=== PATIENT | male | born 1940 | race Caucasian/White ===

== ENCOUNTER 2018-01-14 08:26 | Emergency (ER) | payer OTHER ==
[2018-01-14] MEDS ORDERED: LEVALBUTEROL 1.25 MG/3 ML NEB ONE (09:19)
--- NOTE | 2018-01-14 09:36 | RAD REPORT ---
EXAM DESCRIPTION: Sulaiman Smith (2 Views)01/14/2018 9:26 am CLINICAL HISTORY: Cough COMPARISON: 2014 FINDINGS: The lungs appear clear of acute infiltrate. The heart is normal size. Right pleural thick ening IMPRESSION: No acute abnormalities displayed
--- NOTE | 2018-01-14 09:54 | ER ---
Nurse's Notes [facility] Name: John Dave Age: 77 yrs Sex: Male : 1940 Arrival Date: 01/14/2018 Time: 08:29 Bed 18 Private MD: TRESSA BUSTILLOS Diagnosis: Acute bronchitis;Asthma Presentation: 01/14 08:40 Presenting complaint: Patient states: "I think I've got bronchitis or pneumonia" Pt c/o ss cough, nasal congestion and discharge that began 5-6 days ago. Denies fever. Transition of care: patient was not received from another setting of care. Resp Distress? No respiratory distress is noted at this time. Onset of symptoms was January 06, 2018. Risk Assessment: Do you want to hurt yourself or someone else? Patient reports no desire to harm self or others. Initial Sepsis Screen: Does the patient meet any 2 criteria? RR > 20 per min. Does the patient have a suspected source of infection? Yes: Productive cough/pneumonia. Care prior to arrival: None. 08:40 Method Of Arrival: Ambulatory 08:40 Acuity: LUPILLO 3 ss Historical: - Allergies: 08:45 Erythromycin; ss 08:45 Levofloxacin; ss - Immunization history:: Adult Immunizations up to date. - Social history:: Smoking status: Patient/guardian denies using tobacco. - Ebola Screening: : Patient denies exposure to infectious person Patient denies travel to an Ebola-affected area in the 21 days before illness onset. Screenin:11 Abuse screen: Denies threats or abuse. Nutritional screening: No deficits noted. em Tuberculosis screening: No symptoms or risk factors identified. Fall Risk None identified. Assessment: 09:11 General: Appears in no apparent distress. comfortable, Behavior is calm, cooperative. em Pain: Denies pain. Neuro: Level of Consciousness is awake, alert, obeys commands. Cardiovascular: Denies chest pain, Heart tones S1 S2 present Capillary refill < 3 seconds Patient's skin is warm and dry. Respiratory: Reports cough that is Airway is patent Respiratory effort is even, unlabored, Respiratory pattern is regular, symmetrical, Breath sounds are diminished in left posterior lower lobe and right posterior lower lobe. GI: Abdomen is round non-distended. : No signs and/or symptoms were reported regarding the genitourinary system. EENT: No signs and/or symptoms were reported regarding the EENT system. Derm: Skin is intact, Skin is pink, warm \\T\\ dry. Musculoskeletal: Range of motion: intact in all extremities. 09:15 General: The previous assessment is accurate, call light remains within reach. . ss 09:44 Reassessment: Patient appears in no apparent distress at this time. Patient and/or em family updated on plan of care and expected duration. Pain level reassessed. Patient is alert, oriented x 3, equal unlabored respirations, skin warm/dry/pink. reports feeling better after breathing treatment. Vital Signs: 08:45 BP 135 / 65; Pulse 75; Resp 24; Temp 97.4(TE); Pulse Ox 96% on R/A; Weight 107.95 kg; ss Height 6 ft. 0 in. (182.88 cm); Pain 0/10; 09:44 BP 120 / 60; Pulse 75; Resp 18; Pulse Ox 95% on R/A; Pain 0/10; em 08:45 Body Mass Index 32.28 (107.95 kg, 182.88 cm) ED Course: 08:29 Patient arrived in ED. mr 08:29 VA, VA is Private Physician. mr 08:30 Yadiel Rahman PA is PHCP. jr8 08:30 Dwayne Hewitt MD is Attending Physician. jr8 08:44 Triage completed. ss 08:45 Mat Montgomery LVN is Primary Nurse. em 08:45 Arm band placed on right wrist. ss 09:11 Patient has correct armband on for positive identification. Placed in gown. Bed in low em position. Call light in reach. Adult w/ patient. 09:11 No provider procedures requiring assistance completed. em 09:26 XRAY Chest Pa And Lat (2 Views) In Process Unspecified. EDMS 10:03 Patient did not have IV access during this emergency room visit. em Administered Medications: 09:28 Drug: Xopenex 1.25 mg Route: Inhalation; em 09:41 Follow up: Response: No adverse reaction; Marked relief of symptoms em Outcome: 09:53 Discharge ordered by . jr8 10:03 Discharged to home ambulatory, with family. em 10:03 Condition: good 10:03 Discharge instructions given to patient, family, Instructed on discharge instructions, follow up and referral plans. medication usage, Demonstrated understanding of instructions, follow-up care, medications, Prescriptions given X 2. 10:04 Patient left the ED. em Signatures: Dispatcher [employer] Charis Plascencia mr Ulises, Mat, [employer]IST[employer]LE[employer]ISTS [employer] Vicky Yee RN RN ss Yadiel Rahman PA PA jr8
--- NOTE | 2018-01-14 09:54 | EDPHYS ---
Physician Documentation [facility] Name: John Dave Age: 77 yrs Sex: Male : 1940 Arrival Date: 01/14/2018 Time: 08:29 Bed 18 Private MD: TRESSA FL ED Physician Dwayne Hewitt HPI: 01/14 14:46 This 77 yrs old Male presents to ER via Ambulatory with complaints of Cough, jr8 Congestion. 14:46 The patient or guardian reports cough, that is intermittent, described as moderate, jr8 with productive sputum, that is green. Onset: The symptoms/episode began/occurred gradually, 2 day(s) ago. Severity of symptoms: At their worst the symptoms were mild, in the emergency department the symptoms are unchanged. Modifying factors: The symptoms are alleviated by nothing, the symptoms are aggravated by nothing. Associated signs and symptoms: The patient has no apparent associated signs or symptoms. The patient has not experienced similar symptoms in the past. The patient has not recently seen a physician. Historical: - Allergies: 08:45 Erythromycin; ss 08:45 Levofloxacin; ss - Immunization history:: Adult Immunizations up to date. - Social history:: Smoking status: Patient/guardian denies using tobacco. - Ebola Screening: : Patient denies exposure to infectious person Patient denies travel to an Ebola-affected area in the 21 days before illness onset. ROS: 14:46 Eyes: Negative for injury, pain, redness, and discharge, ENT: Negative for injury, jr8 pain, and discharge, Neck: Negative for injury, pain, and swelling, Cardiovascular: Negative for chest pain, palpitations, and edema, Abdomen/GI: Negative for abdominal pain, nausea, vomiting, diarrhea, and constipation, Back: Negative for injury and pain, MS/Extremity: Negative for injury and deformity, Skin: Negative for injury, rash, and discoloration, Neuro: Negative for headache, weakness, numbness, tingling, and seizure. 14:46 Respiratory: Positive for cough, with green sputum, wheezing, Negative for shortness of breath. Exam: 14:46 Eyes: Pupils equal round and reactive to light, extra-ocular motions intact. Lids and jr8 lashes normal. Conjunctiva and sclera are non-icteric and not injected. Cornea within normal limits. Periorbital areas with no swelling, redness, or edema. ENT: Nares patent. No nasal discharge, no septal abnormalities noted. Tympanic membranes are normal and external auditory canals are clear. Oropharynx with no redness, swelling, or masses, exudates, or evidence of obstruction, uvula midline. Mucous membranes moist. Neck: Trachea midline, no thyromegaly or masses palpated, and no cervical lymphadenopathy. Supple, full range of motion without nuchal rigidity, or vertebral point tenderness. No Meningismus. Cardiovascular: Regular rate and rhythm with a normal S1 and S2. No gallops, murmurs, or rubs. Normal PMI, no JVD. No pulse deficits. Abdomen/GI: Soft, non-tender, with normal bowel sounds. No distension or tympany. No guarding or rebound. No evidence of tenderness throughout. Back: No spinal tenderness. No costovertebral tenderness. Full range of motion. Skin: Warm, dry with normal turgor. Normal color with no rashes, no lesions, and no evidence of cellulitis. MS/ Extremity: Pulses equal, no cyanosis. Neurovascular intact. Full, normal range of motion. Neuro: Awake and alert, GCS 15, oriented to person, place, time, and situation. Cranial nerves II-XII grossly intact. Motor strength 5/5 in all extremities. Sensory grossly intact. Cerebellar exam normal. Normal gait. 14:46 Respiratory: the patient does not display signs of respiratory distress, Respirations: normal, symetrical, no use of accessory muscles, no grunting, no evidence of nasal flaring, no prolonged exhalations, no pursed lip breathing, no retractions, no shallow respirations, no splinting, no tachypnea, Breath sounds: wheezing: expiratory that is mild, is heard in the right posterior upper lobe, right posterior middle lobe and right posterior lower lobe. Vital Signs: 08:45 BP 135 / 65; Pulse 75; Resp 24; Temp 97.4(TE); Pulse Ox 96% on R/A; Weight 107.95 kg; ss Height 6 ft. 0 in. (182.88 cm); Pain 0/10; 09:44 BP 120 / 60; Pulse 75; Resp 18; Pulse Ox 95% on R/A; Pain 0/10; em 08:45 Body Mass Index 32.28 (107.95 kg, 182.88 cm) MDM: 08:30 Patient medically screened. jr8 09:52 Data reviewed: vital signs, nurses notes, radiologic studies, plain films, and as a jr8 result, I will discharge patient. Data interpreted: Pulse oximetry: on room air is 95 %. Interpretation: normal. Counseling: I had a detailed discussion with the patient and/or guardian regarding: the historical points, exam findings, and any diagnostic results supporting the discharge/admit diagnosis, radiology results, the need for outpatient follow up, a family practitioner, to return to the emergency department if symptoms worsen or persist or if there are any questions or concerns that arise at home. Response to treatment: the patient's symptoms have markedly improved after treatment. 01/14 08:51 Order name: XRAY Chest Pa And Lat (2 Views); Complete Time: 09:39 jr8 Administered Medications: 09:28 Drug: Xopenex 1.25 mg Route: Inhalation; em 09:41 Follow up: Response: No adverse reaction; Marked relief of symptoms em Disposition: 12:27 Co-signature as Attending Physician, Dwayne Hewitt MD I agree with the assessment and [facility] plan of care. Disposition: 01/14/18 09:53 Discharged to Home. Impression: Acute bronchitis, Asthma. - Condition is Stable. - Discharge Instructions: Acute Bronchitis, Adult, Asthma, Acute Bronchospasm. - Prescriptions for Doxycycline Monohydrate 100 mg Oral Tablet - take 1 tablet by ORAL route every 12 hours for 10 days; 20 tablet. Albuterol Sulfate 90 mcg/actuation - inhale 1-2 puff by INHALATION route every 4-6 hours; 1 Inhaler. - Medication Reconciliation Form, Thank You Letter, Antibiotic Education, Prescription Opioid Use form. - Follow up: Private Physician; When: 1 week; Reason: Recheck today's complaints, Continuance of care, Re-evaluation by your physician. - Problem is new. - Symptoms have improved. Signatures: Dispatcher [employer] Dwayne Merritt MD MD cha Munoz, Edgar, GREEN COFFEE BLENDER GREEN [employer]EE BLENDER Vicky Yee RN RN ss Roszak, Josh, PA PA jr8 Corrections: (The following items were deleted from the chart) 10:04 09:53 01/14/2018 09:53 Discharged to Home. Impression: Acute bronchitis; Asthma. em Condition is Stable. Forms are Medication Reconciliation Form, Thank You Letter, Antibiotic Education, Prescription Opioid Use. Follow up: Private Physician; When: 1 week; Reason: Recheck today's complaints, Continuance of care, Re-evaluation by your physician. Problem is new. Symptoms have improved. jr8
== END 2018-01-14 10:04 | disposition home or self-care (01) ==
LOC: ER 08:26
DX: J20.9 Acute bronchitis, unspecified (principal); Z88.3 Allergy status to other anti-infective agents; Z88.8 Allergy status to other drugs, medicaments and biological substances
CPT/HCPCS: 71046; 99284

== ENCOUNTER 2018-03-28 15:28 | Observation (INO) | payer OTHER ==
--- NOTE | 2018-03-28 16:57 | ER ---
Nurse's Notes [facility] Name: John Dave Age: 77 yrs Sex: Male : 1940 Arrival Date: 03/28/2018 Time: 15:32 Bed 23 Private MD: TRESSA BUSTILLOS Diagnosis: Fall due to bumping against object;Multiple fractures of ribs, right side-posterior lateral;Contusion of right back wall of thorax;Contusion of thorax;Pleural effusion in conditions classified elsewhere;Type 1 diabetes mellitus Presentation: 03/28 15:57 Presenting complaint: Patient states: chest congestion, fell in shower and has sv right rib pain, productive cough. Care prior to arrival: None. Mechanism of Injury: Fall from standing position. 15:57 Acuity: LUPILLO 3 sv 15:57 Method Of Arrival: Wheelchair sv 15:58 Transition of care: patient was not received from another setting of care. Onset of sv symptoms was March 24, 2018. 18:17 Risk Assessment: Do you want to hurt yourself or someone else? Patient reports no ls4 desire to harm self or others. Initial Sepsis Screen: Does the patient meet any 2 criteria? No. Patient's initial sepsis screen is negative. Does the patient have a suspected source of infection? No. Patient's initial sepsis screen is negative. Triage Assessment: 18:17 General: Appears in no apparent distress. Behavior is cooperative. ls4 Trauma Activation: Not Applicable Physician: ED Physician; Name: ; Notified At: ; Arrived At: Physician: General Surgeon; Name: ; Notified At: ; Arrived At: Physician: Radiology; Name: ; Notified At: ; Arrived At: Physician: Respiratory; Name: ; Notified At: ; Arrived At: Physician: Lab; Name: ; Notified At: ; Arrived At: Historical: - Allergies: 16:00 Erythromycin; sv 16:00 Levofloxacin; sv - PMHx: 16:00 Diabetes - IDDM; familial tremors; Hypothyroidism; plural effusion; Pneumonia; Prostate sv Cancer; thoracentisis; - PSHx: 16:01 Cholecystectomy; shoulder; prostate removal; sv - Immunization history:: Adult Immunizations unknown, Last tetanus immunization:. - Social history:: Smoking status: Patient/guardian denies using tobacco, never smoked. - Ebola Screening: : No symptoms or risks identified at this time. Screenin:48 Abuse screen: Denies threats or abuse. Denies injuries from another. Nutritional ls4 screening: No deficits noted. Tuberculosis screening: No symptoms or risk factors identified. Fall Risk None identified. Assessment: 17:00 General: Appears uncomfortable, Behavior is calm, cooperative. ls4 17:00 Respiratory: Reports pain with movement since Pain is 5 out of 10 on a pain ls4 scale. Airway Respiratory effort is even, unlabored, Respiratory pattern is pt reports pain in right posterior chest area on inspiration. 17:10 Pain: Complains of pain in right posterior lower lobe and right posterior middle lobe ls4 and left mid back and left low back Pain currently is 7 out of 10 on a pain scale. 17:10 Neuro: No deficits noted. Cardiovascular: No deficits noted. Respiratory: Reports cough ls4 that is productive, persistent since one year. GI: No deficits noted. : No deficits noted. Derm: No deficits noted. Musculoskeletal: Reports pain in right posterior lower lobe and right posterior middle lobe and left mid back and left low back. 18:00 Reassessment: Patient and/or family updated on plan of care and expected duration. Pain ls4 level reassessed. Patient is alert, oriented x 3, equal unlabored respirations, skin warm/dry/pink. 19:00 Reassessment: Patient and/or family updated on plan of care and expected duration. Pain ls4 level reassessed. Patient is alert, oriented x 3, equal unlabored respirations, skin warm/dry/pink. 20:00 Reassessment: Patient and/or family updated on plan of care and expected duration. Pain ls4 level reassessed. Patient is alert, oriented x 3, equal unlabored respirations, skin warm/dry/pink. Vital Signs: 16:02 BP 138 / 71; Pulse 73; Resp 20; Temp 99.2(O); Pulse Ox 96% ; Weight 108.86 kg; Height 6 sv ft. 0 in. (182.88 cm); Pain 8/10; 17:00 BP 132 / 70; Pulse 71; Resp 16; Pulse Ox 99% on R/A; Pain 4/10; ls4 18:00 BP 134 / 70; Pulse 71; Resp 16; Temp 98.4(O); Pulse Ox 98% on R/A; Pain 3/10; ls4 19:00 BP 128 / 70; Pulse 70; Resp 18; Temp 98.2(O); Pulse Ox 98% on R/A; Pain 3/10; ls4 20:00 BP 126 / 72; Pulse 69; Resp 16; Pulse Ox 99% on R/A; Pain 3/10; ls4 20:24 BP 128 / 72; Pulse 70; Resp 16; Temp 98.6(O); Pulse Ox 98% on R/A; Pain 5/10; ls4 16:02 Body Mass Index 32.55 (108.86 kg, 182.88 cm) sv ED Course: 15:32 Patient arrived in ED. sb2 15:32 VA, VA is Private Physician. sb2 15:58 Triage completed. sv 16:02 Arm band placed on. sv 16:25 Dwayne Hewitt MD is Attending Physician. [facility] 16:27 Shanice Amador, JOSE ANTONIO is Primary Nurse. ls4 16:34 Patient moved to radiology via wheelchair. jf 16:34 X-ray completed. Patient tolerated procedure well. jf 16:38 Radiology exam delayed due to lab results not completed at this time. (BUN/Creatinine). nj 16:39 Chest Pa And Lat (2 Views) XRAY In Process Unspecified. EDMS 16:48 Patient moved back from radiology. jf 16:48 Patient has correct armband on for positive identification. Placed in gown. Bed in low ls4 position. Side rails up X 1. hall monitor on. Pulse ox on. NIBP on. 16:48 No provider procedures requiring assistance completed. ls4 16:50 Leatha Hernandez MD is Hospitalizing Provider. [facility] 17:02 EKG done, by lighting engineering technician. reviewed by Dwayne Hewitt MD. 3 18:12 CT Chest, Abdomen, Pelvis - W/Contrast In Process Unspecified. EDMS 18:14 CT completed. Patient tolerated procedure well. Patient moved back from CT. nj 18:14 INCENTIVE SPIROMETRY Sent. ls4 Administered Medications: 17:08 Drug: NS 0.9% 500 ml Route: IV; Rate: bolus; Site: left antecubital; ls4 17:35 Follow up: IV Status: Completed infusion; IV Intake: 200ml ls4 17:10 Drug: fentaNYL (PF) 50 mcg Route: IVP; Site: left antecubital; ls4 17:40 Follow up: Response: No adverse reaction; Marked relief of symptoms ls4 17:10 Drug: Zofran 4 mg Route: IVP; Site: left antecubital; ls4 17:40 Follow up: Response: No adverse reaction; Marked relief of symptoms ls4 17:15 Drug: NS 0.9% 1000 ml Route: IV; Rate: 125 ml/hr; Site: left antecubital; ls4 03/29 21:35 Follow up: IV Status: Infusion continued upon admission; IV Intake: 275ml ls4 03/28 18:12 Drug: Zosyn 3.375 grams Route: IVPB; Infused Over: 60 mins; Site: left antecubital; ls4 20:38 Follow up: Response: No adverse reaction; IV Status: Completed infusion; IV Intake: ls4 100ml 18:12 Drug: Xopenex 2.5 mg Route: Inhalation; ls4 20:38 Follow up: Response: No adverse reaction; Marked relief of symptoms ls4 18:12 Drug: AtroVENT Aerosol 0.5 mg Route: Inhalation; ls4 18:48 Follow up: Response: No adverse reaction ls4 20:24 Follow up: BP 128 / 72; Pulse 70 bpm; Resp 16 bpm; Temp 98.6 Oral; Pulse Ox 98% RA; ls4 Pain 5/10 Adult Intake: 17:35 IV: 200ml; Total: 200ml. ls4 20:38 IV: 100ml; Total: 300ml. ls4 03/29 21:35 IV: 275ml; Total: 575ml. ls4 Outcome: 03/28 16:57 Decision to Hospitalize by Provider. [facility] 21:42 Admitted to Tele accompanied by tech, room 405, on monitor, with chart, Report called ls4 to Dank 21:42 Condition: stable 21:44 Patient left the ED. ls4 Signatures: Dispatcher [employer] EDMS Fannie Samuels RN RN Dwayne Yepez MD MD cha Jordan, Nathan nj Faul, Justin jf Billeau, Sheri 2 Carey Bell 3 Shanice Amador RN RN ls4 Corrections: (The following items were deleted from the chart) 16:03 16:02 Pulse 73bpm; Resp 20bpm; Pulse Ox 96%; Temp 99.2F; 108.86 kg; Height 6 ft. 0 in.; sv BMI: 32.5; Pain 8/10; sv 18:14 18:13 fentaNYL (PF) 50 mcg IVP in left antecubital ls4 ls4 20:38 19:12 Response: No adverse reaction; IV Status: Completed infusion; IV Intake: 100ml ls4ls4
--- NOTE | 2018-03-28 16:57 | EDPHYS ---
Physician Documentation [facility] Name: John Dave Age: 77 yrs Sex: Male : 1940 Arrival Date: 03/28/2018 Time: 15:32 Bed 23 Private MD: [place], [place] ED Physician Dwayne Hewitt HPI: 03/28 16:32 This 77 yrs old Male presents to ER via Wheelchair with complaints of Fall kaiser Injury - BACK. 16:32 Details of fall: The patient fell from an upright position, while standing. Onset: The kaiser symptoms/episode began/occurred 5 day(s) ago. Associated injuries: The patient sustained upper back injury, contusion, decreased range of motion, pain, pain with movement, tenderness. Severity of symptoms: At their worst the symptoms were moderate. The patient has not experienced similar symptoms in the past. Historical: - Allergies: 16:00 Erythromycin; sv 16:00 Levofloxacin; sv - PMHx: 16:00 Diabetes - IDDM; familial tremors; Hypothyroidism; plural effusion; Pneumonia; Prostate sv Cancer; thoracentisis; - PSHx: 16:01 Cholecystectomy; shoulder; prostate removal; sv - Immunization history:: Adult Immunizations unknown, Last tetanus immunization:. - Social history:: Smoking status: Patient/guardian denies using tobacco, never smoked. - Ebola Screening: : No symptoms or risks identified at this time. ROS: 16:32 Constitutional: Negative for fever, chills, and weight loss, Eyes: Negative for injury, kaiser pain, redness, and discharge, ENT: Negative for injury, pain, and discharge, Neck: Negative for injury, pain, and swelling, Cardiovascular: Negative for chest pain, palpitations, and edema, Respiratory: Negative for shortness of breath, cough, wheezing, and pleuritic chest pain, Abdomen/GI: Negative for abdominal pain, nausea, vomiting, diarrhea, and constipation, : Negative for injury, bleeding, discharge, and swelling, MS/Extremity: Negative for injury and deformity, Skin: Negative for injury, rash, and discoloration, Neuro: Negative for headache, weakness, numbness, tingling, and seizure, Psych: Negative for depression, anxiety, suicide ideation, homicidal ideation, and hallucinations, Allergy/Immunology: Negative for hives, rash, and allergies, Endocrine: Negative for neck swelling, polydipsia, polyuria, polyphagia, and marked weight changes, Hematologic/Lymphatic: Negative for swollen nodes, abnormal bleeding, and unusual bruising. 16:32 Back: Positive for pain at rest, pain with movement, flank pain, on the left, radiated pain, of the left low back and left mid back. Exam: 16:36 Constitutional: This is a well developed, well nourished patient who is awake, alert, kaiser and in no acute distress. Head/Face: Normocephalic, atraumatic. Eyes: Pupils equal round and reactive to light, extra-ocular motions intact. Lids and lashes normal. Conjunctiva and sclera are non-icteric and not injected. Cornea within normal limits. Periorbital areas with no swelling, redness, or edema. ENT: Nares patent. No nasal discharge, no septal abnormalities noted. Tympanic membranes are normal and external auditory canals are clear. Oropharynx with no redness, swelling, or masses, exudates, or evidence of obstruction, uvula midline. Mucous membranes moist. Neck: Trachea midline, no thyromegaly or masses palpated, and no cervical lymphadenopathy. Supple, full range of motion without nuchal rigidity, or vertebral point tenderness. No Meningismus. Chest/axilla: Normal chest wall appearance and motion. Nontender with no deformity. No lesions are appreciated. Cardiovascular: Regular rate and rhythm with a normal S1 and S2. No gallops, murmurs, or rubs. Normal PMI, no JVD. No pulse deficits. Abdomen/GI: Soft, non-tender, with normal bowel sounds. No distension or tympany. No guarding or rebound. No evidence of tenderness throughout. Male : Normal genitalia with no discharge or lesions. Skin: Warm, dry with normal turgor. Normal color with no rashes, no lesions, and no evidence of cellulitis. MS/ Extremity: Pulses equal, no cyanosis. Neurovascular intact. Full, normal range of motion. Neuro: Awake and alert, GCS 15, oriented to person, place, time, and situation. Cranial nerves II-XII grossly intact. Motor strength 5/5 in all extremities. Sensory grossly intact. Cerebellar exam normal. Normal gait. Psych: Awake, alert, with orientation to person, place and time. Behavior, mood, and affect are within normal limits. 16:36 Respiratory: the patient does not display signs of respiratory distress, Respirations: normal, Breath sounds: decreased breath sounds, rhonchi, that are mild, that are moderate, are located in both bases, are heard in the right posterior middle lobe and right posterior lower lobe, Respiratory rate: 20 Vital Signs: 16:02 BP 138 / 71; Pulse 73; Resp 20; Temp 99.2(O); Pulse Ox 96% ; Weight 108.86 kg; Height 6 sv ft. 0 in. (182.88 cm); Pain 8/10; 17:00 BP 132 / 70; Pulse 71; Resp 16; Pulse Ox 99% on R/A; Pain 4/10; ls4 18:00 BP 134 / 70; Pulse 71; Resp 16; Temp 98.4(O); Pulse Ox 98% on R/A; Pain 3/10; ls4 19:00 BP 128 / 70; Pulse 70; Resp 18; Temp 98.2(O); Pulse Ox 98% on R/A; Pain 3/10; ls4 20:00 BP 126 / 72; Pulse 69; Resp 16; Pulse Ox 99% on R/A; Pain 3/10; ls4 20:24 BP 128 / 72; Pulse 70; Resp 16; Temp 98.6(O); Pulse Ox 98% on R/A; Pain 5/10; ls4 16:02 Body Mass Index 32.55 (108.86 kg, 182.88 cm) sv MDM: 16:25 Patient medically screened. [facility] 16:36 Data reviewed: vital signs, nurses notes, lab test result(s), EKG, radiologic studies, [facility] CT scan, plain films. 03/28 16:31 Order name: Basic Metabolic Panel; Complete Time: 17:46 [facility] 03/28 16:31 Order name: CBC with Diff; Complete Time: 17:46 [facility] 03/28 16:31 Order name: Creatinine for Radiology; Complete Time: 17:46 [facility] 03/28 16:31 Order name: Type And Screen; Complete Time: 18:19 [facility] 03/28 16:31 Order name: Lipase; Complete Time: 17:46 [facility] 03/28 16:31 Order name: LFT's; Complete Time: 17:46 [facility] 03/28 16:31 Order name: Blood Culture Adult (2) [facility] 03/28 16:31 Order name: Urine Culture [facility] 03/28 16:37 Order name: PT-INR; Complete Time: 17:46 [facility] 03/28 16:37 Order name: Procalcitonin; Complete Time: 18:19 [facility] 03/28 17:26 Order name: Troponin (Emerg Dept Use Only); Complete Time: 17:46 [facility] 03/28 16:03 Order name: Chest Pa And Lat (2 Views) XRAY 03/28 16:31 Order name: Labs collected and sent; Complete Time: 18:15 [facility] 03/28 16:31 Order name: CT Chest, Abdomen, Pelvis - W/Contrast [facility] 03/28 16:31 Order name: INCENTIVE SPIROMETRY [facility] 03/28 16:37 Order name: EKG; Complete Time: 16:38 [facility] 03/28 17:29 Order name: NT PRO-BNP; Complete Time: 17:46 [facility] 03/28 17:29 Order name: Magnesium; Complete Time: 17:46 [facility] 03/28 18:03 Order name: Urine Dipstick--Ancillary (enter results) 03/28 20:57 Order name: ABO/RH no charge [facility] 03/28 16:31 Order name: Urine Dipstick-Ancillary (obtain specimen); Complete Time: 18:15 [facility] 03/28 16:37 Order name: Cardiac monitoring; Complete Time: 17:13 [facility] 03/28 16:37 Order name: EKG - Nurse/Tech; Complete Time: 17:13 [facility] 03/28 16:37 Order name: O2 Per Protocol; Complete Time: 17:13 [facility] 03/28 16:37 Order name: O2 Sat Monitoring; Complete Time: 18:15 [facility] Administered Medications: 17:08 Drug: NS 0.9% 500 ml Route: IV; Rate: bolus; Site: left antecubital; ls4 17:35 Follow up: IV Status: Completed infusion; IV Intake: 200ml ls4 17:10 Drug: fentaNYL (PF) 50 mcg Route: IVP; Site: left antecubital; ls4 17:40 Follow up: Response: No adverse reaction; Marked relief of symptoms ls4 17:10 Drug: Zofran 4 mg Route: IVP; Site: left antecubital; ls4 17:40 Follow up: Response: No adverse reaction; Marked relief of symptoms ls4 17:15 Drug: NS 0.9% 1000 ml Route: IV; Rate: 125 ml/hr; Site: left antecubital; ls4 03/29 21:35 Follow up: IV Status: Infusion continued upon admission; IV Intake: 275ml ls4 03/28 18:12 Drug: Zosyn 3.375 grams Route: IVPB; Infused Over: 60 mins; Site: left antecubital; ls4 20:38 Follow up: Response: No adverse reaction; IV Status: Completed infusion; IV Intake: ls4 100ml 18:12 Drug: Xopenex 2.5 mg Route: Inhalation; ls4 20:38 Follow up: Response: No adverse reaction; Marked relief of symptoms ls4 18:12 Drug: AtroVENT Aerosol 0.5 mg Route: Inhalation; ls4 18:48 Follow up: Response: No adverse reaction ls4 20:24 Follow up: BP 128 / 72; Pulse 70 bpm; Resp 16 bpm; Temp 98.6 Oral; Pulse Ox 98% RA; ls4 Pain 5/10 Adult Disposition: 03/28/18 16:57 Hospitalization ordered by Leatha Hernandez for Inpatient Admission. Preliminary diagnosis are Fall due to bumping against object, Multiple fractures of ribs, right side - posterior lateral, Contusion of right back wall of thorax, Contusion of thorax, Pleural effusion in conditions classified elsewhere, Type 1 diabetes mellitus. - Bed requested for Telemetry/MedSurg (Inpatient). - Status is Inpatient Admission. ls4 - Condition is Fair. - Problem is new. - Symptoms are unchanged. UTI on Admission? No Signatures: Dispatcher [employer] EDMS Fannie Samuels RN RN sv Webb, Martha, RN RN mw Anderson, Corey, MD MD cha Stewart, Lisa, RN RN ls4 Corrections: (The following items were deleted from the chart) 17:26 16:38 MAGNESIUM+C.LAB.BRZ ordered. EDMS EDMS 17:26 16:38 PROBNP+C.LAB.BRZ ordered. EDMS EDMS 17: 16:38 TROPONIN (EMERG DEPT USE ONLY)+C.LAB.BRZ ordered. EDMS EDMS 19:51 16:57 Hospitalization Ordered by Leatha Hernandez MD for Inpatient Admission. Preliminary mw diagnosis is Fall due to bumping against object; Multiple fractures of ribs, right side - posterior lateral; Contusion of right back wall of thorax; Contusion of thorax; Pleural effusion in conditions classified elsewhere; Type 1 diabetes mellitus. Bed requested for Telemetry/MedSurg (Inpatient). Status is Inpatient Admission. Condition is Fair. Problem is new. Symptoms are unchanged. UTI on Admission? No. kaiser 21:44 19:51 03/28/2018 16:57 Hospitalization Ordered by Leatha Hernandez MD for Inpatient ls4 Admission. Preliminary diagnosis is Fall due to bumping against object; Multiple fractures of ribs, right side - posterior lateral; Contusion of right back wall of thorax; Contusion of thorax; Pleural effusion in conditions classified elsewhere; Type 1 diabetes mellitus. Bed requested for Telemetry/MedSurg (Inpatient). Status is Inpatient Admission. Condition is Fair. Problem is new. Symptoms are unchanged. UTI on Admission? No.
--- NOTE | 2018-03-28 17:08 | EKG ---
Test Date: 2018-03-28 Test Time: 16:56:56 [employer]: COURTNEY MEASUREMENT RESULTS: Intervals: Rate: 68 AK: QRSD: 86 QT: 422 QTc: 448 [place]: P: AK: QRS: 3 T: 54 INTERPRETIVE STATEMENTS: Accelerated Junctional rhythm Possible Inferior infarct, age undetermined Abnormal ECG No previous ECG available for comparison Electronically Signed On 03-28-18 17:08:01 TEST INSPECTION ENGINEER by Alejandro Reddy
[2018-03-28 17:32] LABS: Protime INR 1.07
[2018-03-28] MEDS ORDERED: NA CHLORIDE 0.9% 500 ML ONE (17:34)
[2018-03-28] MEDS ORDERED: NA CHLORIDE 0.9% 1,000 ML ONE (17:34)
[2018-03-28] MEDS ORDERED: FENTANYL CITR 100 MCG/2 ML ONE (17:34)
[2018-03-28 17:35] LABS: Absolute Lymphocytes (CBC) 2.2 K/uL (0.7-4.9); Absolute Monocytes 0.9 K/uL (0.1-1.3); Absolute Neutrophil 7.1 K/uL (1.8-8.0); Basophils % 0.6 % (0-1.3); Eosinophils % 2.8 % (0-4.4); Hematocrit 39.3 % (39.6-49.0); Lymphocytes % 20.5 % (15.3-44.8); MPV 7.9 fL (7.6-11.3); Monocytes % 8.4 % (3.3-12.3); RBC Red Blood Cell Count 4.39 M/uL (4.33-5.43)
[2018-03-28] MEDS ORDERED: PIPER/TAZO/NS 3.375gm 3.375 GM/100 ML BAG ONE (17:37)
[2018-03-28] MEDS ORDERED: IPRATROPIUM BROM 0.5MG/2.5ML ONE (17:37)
[2018-03-28] MEDS ORDERED: LEVALBUTEROL 1.25 MG/3 ML NEB ONE (17:37)
[2018-03-28] MEDS ORDERED: ONDANSETRON 4 MG/2 ML VIAL ONE (17:37)
[2018-03-28 17:45] LABS: ALT/SGPT 53 U/L (12-78); AST/SGOT 33 U/L (15-37); Albumin 3.8 g/dL (3.4-5.0); Alkaline Phosphatase 89 U/L (45-117); BUN Blood Urea Nitrogen 14 mg/dL (7-18); Bicarbonate 29 mmol/L (21-32); Bilirubin Direct 0.1 mg/dL (0-0.2); Bilirubin Total 0.3 mg/dL (0.2-1.0); Glucose Level 116 mg/dL (74-106); Lipase 78 U/L (73-393); Magnesium 1.9 mg/dL (1.8-2.4); NT PRO-BNP 144 pg/mL (<450); Potassium 4.4 mmol/L (3.5-5.1); Protein, Total 7.9 g/dL (6.4-8.2); Sodium Level 136 mmol/L (136-145); Troponin (Emerg Dept Use Only) < 0.02 ng/mL (0.0-0.045)
--- NOTE | 2018-03-28 18:29 | RAD REPORT ---
EXAM DESCRIPTION: CT - Chest Abdomen Pelvis W Cont - 03/28/2018 6:12 pm CLINICAL HISTORY: Chest and abdomen pain. Cough;Chest pain;Blunt chest trauma COMPARISON: No comparisons TECHNIQUE: Approximately 100 mL nonionic IV contrast was administered to the patient. All CT scans are performed using dose optimization technique as appropriate and may include automated exposure control or mA/KV adjustment according to patient size. FINDINGS: Mildly displaced fracture is seen involving the right posterolateral seventh and eighth ri bs. A small right pleural effusion is present. The lungs are emphysematous. Several enlarged lymph nodes are present in the mediastinum, the largest in the right paratracheal lo cation measuring 2.6 cm. Subcarinal lymphadenopathy is also noted measuring up to 2.3 cm in short axi s. The liver, spleen, pancreas, adrenal glands and kidneys are within normal limits. No bowel obstruction, free air, free fluid or abscess. A rounded soft tissue density mass in the righ t lower quadrant noted measuring 3.6 cm, possibly an enlarged lymph node in the pelvis. Postsurgical changes of prostatectomy noted. Sigmoid diverticulosis is present without diverticulitis. Aortic ath erosclerosis seen. IMPRESSION: Minimally displaced right posterolateral seventh and eighth rib fractures with a small r ight pleural effusion. Pathologically enlarged mediastinal adenopathy is noted, suspicious for lymphoma. Nuclear medicine PE T-CT scan may be of value for further characterization.
--- NOTE | 2018-03-28 18:43 | RAD REPORT ---
EXAM DESCRIPTION: Sulaiman Hameed And Kulwinder (2 Views)03/28/2018 4:40 pm CLINICAL HISTORY: Cough FINDINGS: Mildly displaced fracture involves two mid right posterolateral ribs The lungs appear clear of acute infiltrate. Small right pleural effusion is present. Mediastinum is mildly prominent likely indicating lymphadeno ihsan
[2018-03-28 20:18] LABS: Urine Blood NEGATIVE (NEG); Urine Glucose NEGATIVE (NEG); Urine Protein TRACE (NEG); Urine pH 5.5 (5.0-7.0)
[2018-03-28] MEDS ORDERED: TRAMADOL HCL 50 MG TAB PO PRN (21:20)
[2018-03-28] MEDS ORDERED: KETOROLAC 30 MG/ML INJ IV PRN (21:20)
[2018-03-28] MEDS ORDERED: ACETAMINOPHEN 500 MG TAB PO PRN (21:20)
[2018-03-28] MEDS: INSULIN -REGULAR HUMAN 50 UNIT/0.5 ML ML SQ SCH (21:20)
[2018-03-28] MEDS ORDERED: ONDANSETRON 4 MG/2 ML VIAL IV PRN (21:20)
--- NOTE | 2018-03-28 22:18 | P.HP ---
Certification for Inpatient Patient admitted to: Observation With expected LOS: <2 Midnights Practitioner: I am a practitioner with admitting privileges, knowledge of patient current condition, hospital course, and medical plan of care. Services: Services provided to patient in accordance with Admission requirements found in Title 42 Section 412.3 of the Code of Federal Regulations Patient History Date of Service: 03/28/18 Reason for admission: fall, rib fracture History of Present Illness: Mr Dave is a 77 years old male who fell from standing position 2 times about 5 days ago. The first time he tripped and had a laceration on his left knee. The second time he was on the shower and slipped, landing on his right side. Since so, he has been complaining of severe back pain on the right side. No history of cough, fever, chills, or abdominal pain. He denied chest pain or palpitation prior to the falls. CT chest/abd/pelvis shows minimally displaced right posterolateral seventh and eighth rib fractures with a small right pleural effusion. Lab work mostly unremarkable. Allergies levofloxacin Allergy (Unverified 12/10/15 15:22) Unknown erythromycin Allergy (Uncoded 09/21/14 13:01) Unknown Home medications list reviewed: Yes - Past Medical/Surgical History -: IDDM -: hypohtyroidism -: familial tremor -: Cholecystectomy; shoulder; prostate removal - Social History Smoking Status: Former smoker CD- Drugs: No Place of Residence: Home Review of Systems 10-point ROS is otherwise unremarkable Physical Examination - Vital Signs Temperature: 98.6 F Blood Pressure: 128/72 Pulse: 70 Respirations: 16 Pulse Ox (%): 97 - Physical Exam General: Alert, In no apparent distress HEENT: Atraumatic, PERRLA, Mucous membr. moist/pink, EOMI, Sclerae nonicteric Neck: Supple, 2+ carotid pulse no bruit, No LAD, Without JVD or thyroid abnormality Respiratory: Clear to auscultation bilaterally, Normal air movement Cardiovascular: Regular rate/rhythm, Normal S1 S2 Gastrointestinal: Normal bowel sounds, No tenderness Musculoskeletal: Tenderness (right chest wall) Integumentary: No rashes Neurological: Normal speech, Normal strength at 5/5 x4 extr, Normal tone, Normal affect Lymphatics: No axilla or inguinal lymphadenopathy - Studies Laboratory Data (last 24 hrs) 03/28/18 17:02: PT 12.6 H, INR 1.07 03/28/18 17:02: Magnesium Cancelled 03/28/18 17:02: Creatinine 0.72 03/28/18 17:02: WBC 10.5, Hgb 13.3 L, Hct 39.3 L, Plt Count 330 03/28/18 17:02: Sodium 136, Potassium 4.4, BUN 14, Creatinine 0.75, Glucose 116 H, Magnesium 1.9, Total Bilirubin 0.3, AST 33, ALT 53, Alkaline Phosphatase 89, Lipase 78 Assessment and Plan - Problems (Diagnosis) (1) Ribs, multiple fractures Current Visit: Yes Status: Acute Qualifiers: Encounter type: initial encounter Fracture type: closed Laterality: right Qualified Code(s): S22.41XA - Multiple fractures of ribs, right side, initial encounter for closed fracture (2) Diabetes mellitus Current Visit: Yes Status: Acute Qualifiers: Diabetes mellitus type: type 2 Diabetes mellitus oysterman insulin use: with oysterman use Diabetes mellitus complication status: with unspecified complications Qualified Code(s): E11.8 - Type 2 diabetes mellitus with unspecified complications; Z79.4 - joint terminal attack controller (current) use of insulin (3) HTN (hypertension) Current Visit: Yes Status: Acute Qualifiers: Hypertension type: essential hypertension Qualified Code(s): I10 - Essential (primary) hypertension (4) Hypothyroidism Current Visit: Yes Status: Acute Qualifiers: Hypothyroidism type: unspecified Qualified Code(s): E03.9 - Hypothyroidism , unspecified - Plan The patient will be admitted to the hospital due to multiple rib fracture, in order to control the pain. Consult physical therapy, order incentive spiromtry. - Advance Directives Does patient have a Living Will: No Does patient have a Durable POA for Healthcare: No - Code Status/Comfort Care Code Status Assessed: Yes Code Status: Full Code
[2018-03-28 22:37] VITALS: BMI 33.2
[2018-03-28] MEDS ORDERED: HYDRALAZINE HCL 20 MG/ML VIAL IV PRN (23:37)
[2018-03-29 00:53] VITALS: O2SAT 99
[2018-03-29] MEDS: INSULIN -REGULAR HUMAN 50 UNIT/0.5 ML ML SQ SCH (07:30)
[2018-03-29] MEDS ORDERED: CODEINE 30MG/APAP 300MG TAB PO PRN (08:44)
[2018-03-29] MEDS ORDERED: ALBUTEROL INHALER 60 PUFF/8 GM IH PRN (08:44)
[2018-03-29] MEDS ORDERED: ASPIRIN 81 MG CHEWABLE TABLET PO SCH (09:00)
[2018-03-29] MEDS ORDERED: LISINOPRIL 5 MG TAB PO SCH (09:00)
[2018-03-29] MEDS ORDERED: FLUTICASONE 50MCG NASAL SPRAY NAS SCH (09:00)
[2018-03-29] MEDS ORDERED: MULTIVIT W/ MINERAL TAB PO SCH (09:00)
[2018-03-29] MEDS ORDERED: INSULIN GLARGINE 100 UNITS/ML SQ SCH (09:00)
[2018-03-29] MEDS ORDERED: PRIMIDONE 50 MG TAB PO SCH (09:00)
[2018-03-29] MEDS ORDERED: DULERA 200/5 (MOMETASONE/FORMOTEROL) INHALER IH SCH (09:00)
[2018-03-29] MEDS ORDERED: BICALUTAMIDE PO SCH (09:00)
[2018-03-29] MEDS ORDERED: DOCOSAHEXANOIC AC/EPA 1000 MG PO SCH (09:00)
[2018-03-29] MEDS ORDERED: CYANOCOBALAMIN 1,000 MCG TAB PO SCH (10:00)
[2018-03-29 13:11] VITALS: BP 164/69; TEMP 97.7
--- NOTE | 2018-03-29 13:55 | P.DS ---
Admission Date: 03/28/18 Discharge Date: 03/29/18 Primary Care Provider: [facility] Disposition: DC HOME/HOME HEALTH CARE Discharge Condition: GOOD Reason for Admission: fall, rib fracture Consultations: none Procedures: CT Scan: COMPARISON: No comparisons TECHNIQUE: Approximately 100 mL nonionic IV contrast was administered to the patient. All CT scans are performed using dose optimization technique as appropriate and may include automated exposure control or mA/KV adjustment according to patient size. FINDINGS: Mildly displaced fracture is seen involving the right posterolateral seventh and eighth ribs. A small right pleural effusion is present. The lungs are emphysematous. Several enlarged lymph nodes are present in the mediastinum, the largest in the right paratracheal location measuring 2.6 cm. Subcarinal lymphadenopathy is also noted measuring up to 2.3 cm in short axis. The liver, spleen, pancreas, adrenal glands and kidneys are within normal limits. No bowel obstruction, free air, free fluid or abscess. A rounded soft tissue density mass in the right lower quadrant noted measuring 3.6 cm, possibly an enlarged lymph node in the pelvis. Postsurgical changes of prostatectomy noted. Sigmoid diverticulosis is present without diverticulitis. Aortic atherosclerosis seen. IMPRESSION: Minimally displaced right posterolateral seventh and eighth rib fractures with a small right pleural effusion. Pathologically enlarged mediastinal adenopathy is noted, suspicious for lymphoma. Nuclear medicine PET-CT scan may be of value for further characterization. Medical Problem List: Fall with Right rib fractures with small pleural effusion Brief History of Present Illness: 77-year-old male presented emergency room with increasing rib pain. Patient fell a couple a days ago. Patient continue to have pain. Patient seen in the emergency room. Found to have right rib fractures. Patient was admitted for observation. Hospital Course: Patient presented with recent fall. Patient found to have right rib fractures with small pleural effusion. Patient was observed overnight. Patient did well with pain control. Patient worked with physical therapy. At discharge he will continue with physical therapy and home health. Patient will be given tramadol 50 mg 1 pill 3 times a day as needed for mild pain and Tylenol #3 1 pill 3 times a day as needed for moderate to severe pain. Patient will follow up with his PCP in 1-2 weeks to follow up this hospitalization. Patient has multiple medical problems including diabetes type 2, hypertension, hyperlipidemia, asthma, and stage IV prostate cancer. CT scan revealed lymphadenopathy. Patient is to have a PET CT scan and bone scan to follow up on his chemotherapy with prostate cancer. Patient reports history of metastasis to the lung. Patient will follow up with oncology. Patient will continue with his current medications. Vital Signs/Physical Exam: Temp Pulse Resp BP Pulse Ox 97.7 F 76 22 H 164/69 H 96 03/29/18 11:00 03/29/18 11:00 03/29/18 11:00 03/29/18 11:00 03/29/18 11:00 General: Alert, In no apparent distress, Oriented x3, Cooperative HEENT: Atraumatic Neck: Supple Respiratory: Clear to auscultation bilaterally, Normal air movement Cardiovascular: Normal pulses, Regular rate/rhythm Gastrointestinal: Normal bowel sounds, Soft and benign, Non-distended, No tenderness, No masses, No rebound, No guarding Musculoskeletal: No erythema, No tenderness, No warmth Integumentary: No tenderness/swelling, No erythema, No warmth, No cyanosis Neurological: Normal speech, Normal strength at 5/5 x4 extr, Normal tone Laboratory Data at Discharge: WBC 10.5 K/uL (4.3-10.9) 03/28/18 17:02 Hgb 13.3 g/dL (13.6-17.9) L 03/28/18 17:02 Hct 39.3 % (39.6-49.0) L 03/28/18 17:02 Plt Count 330 K/uL (152-406) 03/28/18 17:02 PT 12.6 SECONDS (9.5-12.5) H 03/28/18 17:02 INR 1.07 03/28/18 17:02 Sodium 136 mmol/L (136-145) 03/28/18 17:02 Potassium 4.4 mmol/L (3.5-5.1) 03/28/18 17:02 BUN 14 mg/dL (7-18) 03/28/18 17:02 Creatinine 0.75 mg/dL (0.55-1.3) 03/28/18 17:02 Glucose 116 mg/dL (74-106) H 03/28/18 17:02 Magnesium 1.9 mg/dL (1.8-2.4) 03/28/18 17:02 Total Bilirubin 0.3 mg/dL (0.2-1.0) 03/28/18 17:02 AST 33 U/L (15-37) 03/28/18 17:02 ALT 53 U/L (12-78) 03/28/18 17:02 Alkaline Phosphatase 89 U/L (45-117) 03/28/18 17:02 Lipase 78 U/L (73-393) 03/28/18 17:02 Home Medications: Aspirin Chewable [Aspirin Chewable*] 81 mg PO DAILY 03/28/18 Atorvastatin Calcium [Lipitor*] 20 mg PO BEDTIME 03/28/18 Bicalutamide [Casodex] 1 tab PO DAILY 03/28/18 Cetirizine HCl [Zyrtec*] 5 mg PO BEDTIME 03/28/18 Cyanocobalamin (Vitamin B-12) [B-12] 1 tab PO DAILY 03/28/18 Docosahexanoic AC/Epa [Fish Oil 1,000 MG*] 1,000 mg PO DAILY 03/28/18 Fluticasone [Flonase 50MCG Nasal [place]*] 2 sprays NS BID 03/28/18 Insulin Aspart [Novolog] 50 unit SQ TID 03/28/18 Insulin Detemir [Levemir] 40 units SQ BID 03/28/18 Leuprolide Acetate [Lupron Depot] 3.75 mg IM DIRECTED 03/28/18 Levothyroxine [Synthroid*] 250 mcg PO [id number] 03/28/18 Lisinopril [Zestril] 2.5 mg PO DAILY 03/28/18 Metformin HCl 1,000 mg PO BIDWM 03/28/18 Multivit-Min/FA/Lycopen/Lutein [Senior Tabs] 1 each PO DAILY 03/28/18 Primidone [Mysoline *] 100 mg PO BID 03/28/18 Albuterol Inhaler [Ventolin Inhaler*] 2 puff IN Q6HR PRN #1 hfa.aer.ad 03/29/18 Codeine/APAP [Tylenol #3*] 1 tab PO TID PRN #15 tab 03/29/18 Mometasone/Formoterol [Dulera 200 Mcg/5 Mcg Inhaler] 2 puff IH BID #1 inhaler traMADol HCL [Ultram*] 50 mg PO TID PRN #20 tab 03/29/18 New Medications: Albuterol Inhaler [Ventolin Inhaler*] 2 puff IN Q6HR PRN #1 hfa.aer.ad PRN Reason: Shortness Of Breath Codeine/APAP [Tylenol #3*] 1 tab PO TID PRN #15 tab PRN Reason: Pain Moderate To Severe Mometasone/Formoterol [Dulera 200 Mcg/5 Mcg Inhaler] 2 puff IH BID #1 inhaler traMADol HCL [Ultram*] 50 mg PO TID PRN #20 tab PRN Reason: Pain Mild Patient Discharge Instructions: 1. Patient will need to follow up with PCP in 1 week to follow this hospitalization. 2. Patient presented with Right rib fractures and small pleural effusion after a fall. Patient is stable. He will go with home with PT/HH. Fall precautions addressed. Patient will be given Tramadol 50 mg one pill three times a day as need for mild pain and Tylenol #3 one pill three times a day as needed for moderate to severe pain. Further adjustment in medication can be done by his PCP. 3. Patient has DM, HTN, Stage 4 Prostate cancer. He will continue with his meds. Follow up with his PCP and Oncology to further address. 4. Patient is to have PET CT scan to further evaluate his Lymphadenopathy. Diet: ADA Activity: Fall precautions Time spent managing pt's care (in minutes): 55
[2018-03-29] MEDS ORDERED: METFORMIN HCL 500 MG TAB PO SCH (17:00)
[2018-03-29] MEDS ORDERED: CETIRIZINE HCL 5 MG TABLET PO SCH (21:00)
[2018-03-29] MEDS ORDERED: ATORVASTATIN 20 MG TAB PO SCH (21:00)
[2018-03-30] MEDS ORDERED: LEVOTHYROXINE SOD 0.125 MG TAB PO SCH (06:00)
== END 2018-03-29 12:08 | disposition home health service (06) ==
LOC: ER 15:28 → ERHOLD 19:34 → 4TH 20:42
PROVIDERS: ADMIT Internal Medicine; ATTEND Internal Medicine
DX: S22.31XA Fracture of one rib, right side, initial encounter for closed fracture (principal); J90 Pleural effusion, not elsewhere classified; E11.9 Type 2 diabetes mellitus without complications; I10 Essential (primary) hypertension; E03.9 Hypothyroidism, unspecified; W01.0XXA Fall on same level from slipping, tripping and stumbling without subsequent striking against object, initial encounter; Y92.009 Unspecified place in unspecified non-institutional (private) residence as the place of occurrence of the external cause; C61 Malignant neoplasm of prostate; C78.00 Secondary malignant neoplasm of unspecified lung
CPT/HCPCS: 36415; 71046; 71260; 74177; 80048; 80076; 81003; 82962 ×3; 83690; 83735; 83880; 84145; 84484; 85025; 85610; 86850; 86900; 86901; 87040 ×2; 87088; 93005; 96361; 96365; 96366; 96375; 97163; 99285; G0378 ×2; J2405; J2543; J3010; J7030; Q9967; 87086

== ENCOUNTER 2019-03-22 10:31 | Emergency (ER) | payer OTHER ==
--- OUTSIDE RECORDS SUMMARY | 2019-03-22 10:34 | XMS REPORT ---
:1940 Author Organization eClinicalWorks Care Team Providers Name Role Phone GuidoGilson Provider Role Unavailable Allergies, Adverse Reactions, Alerts Substance Reaction Event Type Erythromycin rash Drug Allergy Problems Problem Type Condition Code Onset Dates Condition Status Problem Stage IV adenocarcinoma of prostate C61 Active Problem Allergic rhinitis, unspecified J30.9 Active seasonality, unspecified trigger Problem HTN, goal below 130/80 I10 Active Problem FDC current use of insulin Z79.4 Active Assessment Allergic rhinitis, unspecified J30.9 Active seasonality, unspecified trigger Problem Mixed hyperlipidemia E78.2 Active Assessment Essential tremor G25.0 Active Assessment Generalized weakness R53.1 Active Problem Parkinson disease G20 Active Problem Hypothyroidism, unspecified type E03.9 Active Problem Asthma, unspecified asthma J45.909 Active severity, unspecified whether complicated, unspecified whether persistent Problem Essential tremor G25.0 Active Problem Type 2 diabetes mellitus with other E11.69 Active specified complication Assessment Mixed hyperlipidemia E78.2 Active Assessment HTN, goal below 130/80 I10 Active Assessment Asthma, unspecified asthma J45.909 Active severity, unspecified whether complicated, unspecified whether persistent Assessment Hypothyroidism, unspecified type E03.9 Active Assessment Stage IV adenocarcinoma of prostate C61 Active Assessment Lymphadenopathy, mediastinal R59.0 Active Assessment History of fall Z91.81 Active Assessment Type 2 diabetes mellitus with other E11.69 Active specified complication Assessment Parkinson disease G20 Active Assessment Skin lesions L98.9 Active Assessment 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 Active Medications Medication Code Code Instructions Start End Status Dosage System Date Date Fish Oil [facility] 05298263019 1000 MG Orally Active 1 capsule Once a day Primidone ND 30478624276 50 MG Orally Active 2 tablet BID Cyanocobalamin [facility] [address]-10 1000 MCG Orally Active as directed Levothyroxine ND 24985254039 50 MCG Orally Active 1 tablet Sodium Once a day on an empty stomach in the morning Levothyroxine [facility] 95105270955 200 MCG Orally Active 1 tablet Sodium Once a day on an empty stomach in the morning Senior Tabs [facility] 47834391905 - Orally Active as directed Levemir [facility] 43407537855 100 UNIT/ML Active as Subcutaneous directed Zyrtec Allergy [facility] 30635598325 10 MG Orally Active 1 tablet Once a day Lipitor [facility] 59476237080 20 MG Orally Active 1 tablet Once a day Levothyroxine [facility] [address]-49 125 MCG Orally Active 2 tablet Sodium Twice a day Aspir-81 [facility] 26164069004 81 MG Orally Active 1 tablet Once a day Advair Diskus [facility] 49860252836 250-50 MCG/DOSE Active 1 puff Inhalation Twice a day Flonase [facility] 18942050277 50 MCG/ACT Active 1 spray in Nasally Once a each day nostril Insulin Aspart [facility] [address]-08 100 UNIT/ML Active as Subcutaneous directed Albuterol Sulfate [facility] 00054329764 108 (90 Base) Active 2 puffs as MCG/ACT needed Inhalation every 6 hrs Leuprolide [facility] [address]-19 3.75 MG Active as Acetate Intramuscular directed Bicalutamide [facility] 84640080319 50 MG Orally Active 1 tablet Once a day Carbidopa-Levodop [facility] 00467585582 25-100 MG Active 1 tablet a Orally Once a day ProAir HFA [facility] 79904181860 108 (90 Base) June Active 2 puffs as MCG/ACT 03, needed Inhalation 2019 every 6 hrs Lisinopril [facility] 64483982939 2.5 MG Orally Active 1 tablet Once a day Metformin HCl [facility] 00620772841 1000 MG Orally Active 1 tablet Twice a day with a meal Dulera [facility] 85516598851 200-5 MCG/ACT Active 2 puffs Inhalation Twice a day Results No Known Results Summary Purpose eClinicalWorks Submission
--- OUTSIDE RECORDS SUMMARY | 2019-03-22 10:34 | XMS REPORT ---
:1940 Author Organization eClinicalWorks Care Team Providers Name Role Phone Hay Gilson Provider Role Unavailable Allergies, Adverse Reactions, Alerts Substance Reaction Event Type Erythromycin rash Drug Allergy Problems Problem Type Condition Code Onset Dates Condition Status Assessment History of fall Z91.81 Active Assessment Parkinson disease G20 Active Assessment Skin lesions L98.9 Active Assessment Generalized weakness R53.1 Active Problem Stage IV adenocarcinoma of prostate C61 Active Problem Allergic rhinitis, unspecified J30.9 Active seasonality, unspecified trigger Problem HTN, goal below 130/80 I10 Active Problem 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.4 Active Problem Mixed hyperlipidemia E78.2 Active Assessment Asthma, unspecified asthma J45.909 Active severity, unspecified whether complicated, unspecified whether persistent Assessment Allergic rhinitis, unspecified J30.9 Active seasonality, unspecified trigger Problem Parkinson disease G20 Active Assessment Essential tremor G25.0 Active Problem Hypothyroidism, unspecified type E03.9 Active Problem Asthma, unspecified asthma J45.909 Active severity, unspecified whether complicated, unspecified whether persistent Problem Essential tremor G25.0 Active Problem Type 2 diabetes mellitus with other E11.69 Active specified complication Assessment HTN, goal below 130/80 I10 Active Assessment Type 2 diabetes mellitus with other E11.69 Active specified complication Assessment Hypothyroidism, unspecified type E03.9 Active Assessment Mixed hyperlipidemia E78.2 Active Assessment Lymphadenopathy, mediastinal R59.0 Active Assessment Medicare annual wellness visit, Z00.00 Active subsequent Assessment 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.4 Active Assessment Stage IV adenocarcinoma of prostate C61 Active Medications Medication Code Code Instructions Start End Status Dosage System Date Date ProAir HFA [facility] 96819138251 108 (90 Base) June Active 2 puffs as MCG/ACT 03, needed Inhalation 2018 every 6 hrs Zyrtec Allergy [facility] 14020064213 10 MG Orally Active 1 tablet Once a day Cyanocobalamin [facility] [address]-62 1000 MCG Orally Active as directed Leuprolide [facility] [address]-69 3.75 MG Active as Acetate Intramuscular directed Lipitor [facility] 60898217981 20 MG Orally Active 1 tablet Once a day Albuterol Sulfate [facility] 46128751197 108 (90 Base) Active 2 puffs as MCG/ACT needed Inhalation every 6 hrs Levothyroxine [facility] 80952728933 50 MCG Orally Active 1 tablet Sodium Once a day on an empty stomach in the morning Flonase [facility] 64871422592 50 MCG/ACT Active 1 spray in Nasally Once a each day nostril Advair Diskus [facility] 34039157451 250-50 MCG/DOSE Active 1 puff Inhalation Twice a day Primidone [facility] 73372265709 50 MG Orally Active 2 tablet BID Carbidopa-Levodop [facility] 91581538383 25-100 MG Active 1 tablet a Orally Once a day Dulera [facility] 49629087520 200-5 MCG/ACT Active 2 puffs Inhalation Twice a day Lisinopril [facility] 36033999744 2.5 MG Orally Active 1 tablet Once a day Metformin HCl [facility] 59344581183 1000 MG Orally Active 1 tablet Twice a day with a meal Fish Oil [facility] 89501573575 1000 MG Orally Active 1 capsule Once a day Senior Tabs [facility] 25570387601 - Orally Active as directed Levemir [facility] 11706472999 100 UNIT/ML Active as Subcutaneous directed Insulin Aspart [facility] [address]-40 100 UNIT/ML Active as Subcutaneous directed Bicalutamide [facility] 58985103762 50 MG Orally Active 1 tablet Once a day Aspir-81 [facility] 40814923645 81 MG Orally Active 1 tablet Once a day Levothyroxine [facility] 15426654404 200 MCG Orally Active 1 tablet Sodium Once a day on an empty stomach in the morning Results No Known Results Summary Purpose eClinicalWorks Submission
[2019-03-22] MEDS ORDERED: METHYLPREDNISOLONE 125 MG INJ ONE (12:15)
[2019-03-22] MEDS ORDERED: IPRATROPIUM BROM 0.5MG/2.5ML ONE (12:15)
[2019-03-22] MEDS ORDERED: LEVALBUTEROL 1.25 MG/3 ML NEB ONE (12:16)
[2019-03-22 12:40] LABS: Absolute Lymphocytes (CBC) 2.1 K/uL (0.7-4.9); Basophils % 0.4 % (0-1.3); Lymphocytes % 24.1 % (15.3-44.8); MPV 7.2 fL (7.6-11.3); RBC Red Blood Cell Count 4.17 M/uL (4.33-5.43)
[2019-03-22 12:44] LABS: Protime INR 1.09
[2019-03-22 12:54] LABS: ALT/SGPT 15 U/L (12-78); AST/SGOT 30 U/L (15-37); Albumin 3.4 g/dL (3.4-5.0); Alkaline Phosphatase 158 U/L (45-117); BUN Blood Urea Nitrogen 13 mg/dL (7-18); Bicarbonate 29 mmol/L (21-32); Bilirubin Direct 0.2 mg/dL (0-0.2); Bilirubin Total 0.4 mg/dL (0.2-1.0); Glucose Level 212 mg/dL (74-106); Magnesium 1.9 mg/dL (1.8-2.4); NT PRO-BNP 223 pg/mL (<450); Potassium 4.5 mmol/L (3.5-5.1); Protein, Total 7.8 g/dL (6.4-8.2); Sodium Level 134 mmol/L (136-145); Troponin (Emerg Dept Use Only) < 0.02 ng/mL (0.0-0.045)
--- NOTE | 2019-03-22 12:57 | RAD REPORT ---
EXAM DESCRIPTION: Soniyat Pa And Lat (2 Views)03/22/2019 12:48 pm CLINICAL HISTORY: Cough COMPARISON: June 2018 FINDINGS: Mild right basilar opacity Left lung appears clear of acute infiltrate The heart is normal size. Mediastinal lymphadenopathy is present. Old rib fractures IMPRESSION: Mild right basilar opacity may represent a pneumonia or pulmonary nodule. This should be followed until it has cleared
--- NOTE | 2019-03-22 13:35 | EDPHYS ---
Physician Documentation [facility] Name: John Dave Age: 78 yrs Sex: Male : 1940 Arrival Date: 03/22/2019 Time: 10:32 Bed 20 Private MD: Dwayne Acevedo HPI: 03/22 12:37 This 78 yrs old Male presents to ER via Wheelchair with complaints of la1 Shortness Of Breath, Asthma Exacerbation. 12:37 The patient has shortness of breath with light activity. Onset: The symptoms/episode la1 began/occurred 2 week(s) ago. Duration: The symptoms are continuous. The patient's shortness of breath is aggravated by light activity, supine position. Associated signs and symptoms: Pertinent positives: productive cough. Severity of symptoms: At their worst the symptoms were moderate. Historical: - Allergies: 10:37 Erythromycin; sv 10:37 Levofloxacin; sv - PMHx: 10:37 Diabetes - IDDM; familial tremors; Hypothyroidism; plural effusion; Pneumonia; Prostate sv Cancer; thoracentisis; - PSHx: 10:37 Cholecystectomy; shoulder; prostate removal; sv - Immunization history:: Adult Immunizations up to date. - Social history:: Smoking status: Patient/guardian denies using tobacco. - Ebola Screening: : Patient negative for fever greater than or equal to 101.5 degrees Fahrenheit, and additional compatible Ebola Virus Disease symptoms Patient denies exposure to infectious person Patient denies travel to an Ebola-affected area in the 21 days before illness onset No symptoms or risks identified at this time. ROS: 12:38 Constitutional: Negative for fever, chills, and weight loss, Eyes: Negative for injury, la1 pain, redness, and discharge, ENT: Negative for injury, pain, and discharge, Neck: Negative for injury, pain, and swelling, Cardiovascular: Negative for chest pain, palpitations, and edema. 12:38 Abdomen/GI: Negative for abdominal pain, nausea, vomiting, diarrhea, and constipation, Back: Negative for injury and pain, : Negative for injury, bleeding, discharge, and swelling, MS/Extremity: Negative for injury and deformity, Skin: Negative for injury, rash, and discoloration, Neuro: Negative for headache, weakness, numbness, tingling, and seizure. 12:38 Respiratory: Positive for orthopnea, shortness of breath. Exam: 12:40 Constitutional: This is a well developed, well nourished patient who is awake, alert, la1 and in no acute distress. Head/Face: Normocephalic, atraumatic. Eyes: Pupils equal round and reactive to light, extra-ocular motions intact. Lids and lashes normal. Conjunctiva and sclera are non-icteric and not injected. Cornea within normal limits. Periorbital areas with no swelling, redness, or edema. ENT: Nares patent. No nasal discharge, no septal abnormalities noted. Tympanic membranes are normal and external auditory canals are clear. Oropharynx with no redness, swelling, or masses, exudates, or evidence of obstruction, uvula midline. Mucous membranes moist. Neck: Trachea midline,. Supple, full range of motion without nuchal rigidity, or vertebral point tenderness. No Meningismus. Chest/axilla: Normal chest wall appearance and motion. Nontender with no deformity. No lesions are appreciated. Cardiovascular: Regular rate and rhythm with a normal S1 and S2. No gallops, murmurs, or rubs. Normal PMI, no JVD. No pulse deficits. 12:40 Abdomen/GI: Soft, non-tender, with normal bowel sounds. No distension or tympany. No guarding or rebound. No evidence of tenderness throughout. Back: No spinal tenderness. No costovertebral tenderness. Full range of motion. 12:40 Respiratory: mild respiratory distress is noted, Respirations: normal, Breath sounds: wheezing: expiratory that is mild, is scattered. Vital Signs: 10:37 BP 125 / 62; Pulse 87; Resp 20; Temp 98.5; Pulse Ox 97% ; Weight 108.86 kg; Height 6 sv ft. 0 in. (182.88 cm); 13:30 BP 147 / 69; Pulse 81; Resp 17; Pulse Ox 97% on R/A; ca1 10:37 Body Mass Index 32.55 (108.86 kg, 182.88 cm) sv MDM: 11:43 Patient medically screened. la1 13:31 Differential diagnosis: asthma, Bronchitis CHF exacerbation, Chronic Obstructive la1 Pulmonary Disease Myocardial Infarction pneumonia, Pneumothorax pulmonary edema, Pulmonary Embolism Sepsis. Data reviewed: vital signs, nurses notes, diagnostic data from outside facility, [facility], old medical records, and as a result, I will discharge patient. Data interpreted: Pulse oximetry: on room air is 100 %. Test interpretation: by ED physician or midlevel provider: ECG, plain radiologic studies. Counseling: I had a detailed discussion with the patient and/or guardian regarding: the historical points, exam findings, and any diagnostic results supporting the discharge/admit diagnosis, lab results, radiology results, the need for outpatient follow up, a family practitioner, to return to the emergency department if symptoms worsen or persist or if there are any questions or concerns that arise at home. Medication response: xopinex. Response to treatment: the patient's symptoms have markedly improved after treatment. Special discussion: Based on the patient's history, exam, and Dx evaluation, there is no indication for emergent intervention or inpatient Tx. It is understood by the patient/guardian that if the Sx's persist or worsen they need to return immediately for re-evaluation. ED course: Pt SOB greatly improved after nebs and steroids, reviewed CT from [place] that shows no PE. RIGHT lung base infiltrate identified as nodule not infection. . 03/22 12:08 Order name: Blood Culture Adult (2) 03/22 12:08 Order name: BMP; Complete Time: 03/22 12:08 Order name: CBC with Diff; Complete Time: 03/22 12:08 Order name: D-Dimer; Complete Time: 03/22 12:08 Order name: Hepatic Function; Complete Time: :03/22 12:08 Order name: Magnesium; Complete Time: :03/22 12:08 Order name: XRAY Chest Pa And Lat (2 Views); Complete Time: 13:03/22 12:08 Order name: NT PRO-BNP; Complete Time: :03/22 12:08 Order name: PT-INR; Complete Time: :03/22 12:08 Order name: Ptt, Activated; Complete Time: :03/22 12:08 Order name: Troponin (emerg Dept Use Only); Complete Time: :03/22 12:08 Order name: EKG; Complete Time: 12:03/22 12:08 Order name: Cardiac monitoring; Complete Time: 12:45 03/22 12:08 Order name: EKG - Nurse/Tech; Complete Time: 13:54 1 03/22 12:08 Order name: IV Saline Lock; Complete Time: 12:45 03/22 12:08 Order name: Labs collected and sent; Complete Time: 12:45 la1 03/22 12:08 Order name: O2 Per Protocol; Complete Time: 12:45 03/22 12:08 Order name: O2 Sat Monitoring; Complete Time: 12:45 la1 Administered Medications: 12:15 Drug: Xopenex (3) 1.25 mg Route: Inhalation; ca1 12:15 Drug: AtroVENT Aerosol 0.5 mg Route: Inhalation; ca1 12:30 Drug: SOLU-Medrol 125 mg Route: IVP; Site: right antecubital; ca1 13:54 Follow up: Response: No adverse reaction; Marked relief of symptoms ca1 Disposition: 16:44 Co-signature as Attending Physician, Dwayne Hewitt MD I agree with the assessment and [facility] plan of care. Disposition: 03/22/19 13:34 Discharged to Home. Impression: Unspecified asthma with (acute) exacerbation, Shortness of breath, Wheezing. - Condition is Stable. - Discharge Instructions: Asthma, Adult, How to Use an Inhaler, Shortness of Breath, Asthma, Acute Bronchospasm, Cough, Adult, Izse-uj-Spya. - Prescriptions for Doxycycline Hyclate 100 mg Oral Tablet - take 1 tablet by ORAL route every 12 hours; 20 tablet. Prednisone 20 mg Oral Tablet - take 2 tablet by ORAL route once daily for 5 days; 10 tablet. Albuterol Sulfate 90 mcg/actuation - inhale 1-2 puff by INHALATION route every 4-6 hours; 1 Inhaler. - Medication Reconciliation Form, Thank You Letter, Antibiotic Education, Prescription Opioid Use form. - Follow up: Private Physician; When: 2 - 3 days; Reason: Recheck today's complaints, Re-evaluation by your physician. - Problem is new. - Symptoms have improved. Signatures: Dispatcher [employer] Fannie Vidales RN RN sv Anderson, Corey, MD MD cha Attema, Lee, ENVIRONMENTAL PROGRAMS SPECIALIST-C ENVIRONMENTAL PROGRAMS SPECIALIST-Cla1 Zenobia William RN RN ca1 Corrections: (The following items were deleted from the chart) 14:04 13:34 03/22/2019 13:34 Discharged to Home. Impression: Unspecified asthma with (acute) ca1 exacerbation; Shortness of breath; Wheezing. Condition is Stable. Forms are Medication Reconciliation Form, Thank You Letter, Antibiotic Education, Prescription Opioid Use. Follow up: Private Physician; When: 2 - 3 days; Reason: Recheck today's complaints, Re-evaluation by your physician. Problem is new. Symptoms have improved. la1
--- NOTE | 2019-03-22 13:35 | ER ---
Nurse's Notes [facility] Name: John Dave Age: 78 yrs Sex: Male : 1940 Arrival Date: 03/22/2019 Time: 10:32 Bed 20 Private MD: Diagnosis: Unspecified asthma with (acute) exacerbation;Shortness of breath;Wheezing Presentation: 03/22 10:36 Presenting complaint: Patient states: SOB, asthma x 2 weeks. Transition of care: sv patient was not received from another setting of care. Onset of symptoms was March 2019. Risk Assessment: Do you want to hurt yourself or someone else? Patient reports no desire to harm self or others. Care prior to arrival: None. 10:36 Method Of Arrival: Wheelchair sv 10:36 Acuity: LUPILLO 3 sv 12:20 Initial Sepsis Screen: Does the patient meet any 2 criteria? No. Patient's initial ca1 sepsis screen is negative. Does the patient have a suspected source of infection? No. Patient's initial sepsis screen is negative. Triage Assessment: 12:30 Respiratory: Onset: The symptoms/episode began/occurred 2 weeks, the patient has mild ca1 shortness of breath. Historical: - Allergies: 10:37 Erythromycin; sv 10:37 Levofloxacin; sv - PMHx: 10:37 Diabetes - IDDM; familial tremors; Hypothyroidism; plural effusion; Pneumonia; Prostate sv Cancer; thoracentisis; - PSHx: 10:37 Cholecystectomy; shoulder; prostate removal; sv - Immunization history:: Adult Immunizations up to date. - Social history:: Smoking status: Patient/guardian denies using tobacco. - Ebola Screening: : Patient negative for fever greater than or equal to 101.5 degrees Fahrenheit, and additional compatible Ebola Virus Disease symptoms Patient denies exposure to infectious person Patient denies travel to an Ebola-affected area in the 21 days before illness onset No symptoms or risks identified at this time. Screenin:20 Abuse screen: Denies threats or abuse. Denies injuries from another. Nutritional ca1 screening: No deficits noted. Tuberculosis screening: No symptoms or risk factors identified. Fall Risk Secondary diagnosis (15 points) impaired mobility, IV access (20 points). Ambulatory Aid- Crutches/Cane/Walker (15 pts). Gait- Impaired (20 pts.). Total Castro Fall Scale indicates High Risk Score (45 or more points). Fall prevention measures have been instituted. Side Rails Up X 2 Family Present and informed to notify staff if the need to leave the bedside As available patient and family educated on Fall Prevention Program and Strategies. Assessment: 12:20 General: Appears in no apparent distress. comfortable, Behavior is calm, cooperative, ca1 appropriate for age. Pain: Denies pain. Neuro: Level of Consciousness is awake, alert, obeys commands, Oriented to person, place, time, situation, Appropriate for age. Cardiovascular: Heart tones S1 S2 present Capillary refill < 3 seconds Patient's skin is warm and dry. Edema is absent. Respiratory: Reports shortness of breath on exertion since >2 weeks ago cough that is productive, since 2 weeks ago Airway is patent Respiratory effort is even, unlabored, Respiratory pattern is regular, symmetrical, Breath sounds with wheezes bilaterally. GI: Abdomen is round non-distended, Bowel sounds present X 4 quads. Abd is soft and non tender X 4 quads. : No signs and/or symptoms were reported regarding the genitourinary system. EENT: No signs and/or symptoms were reported regarding the EENT system. Derm: Skin is intact, is fragile, is thin, Skin is pink, warm \T\ dry. Musculoskeletal: Circulation, motion, and sensation intact. Capillary refill < 3 seconds. 12:30 Cardiovascular: Rhythm is sinus rhythm. ca1 13:35 Reassessment: Patient appears in no apparent distress at this time. Patient is alert, ca1 oriented x 3, equal unlabored respirations, skin warm/dry/pink. General:. Vital Signs: 10:37 BP 125 / 62; Pulse 87; Resp 20; Temp 98.5; Pulse Ox 97% ; Weight 108.86 kg; Height 6 sv ft. 0 in. (182.88 cm); 13:30 BP 147 / 69; Pulse 81; Resp 17; Pulse Ox 97% on R/A; ca1 10:37 Body Mass Index 32.55 (108.86 kg, 182.88 cm) sv ED Course: 10:32 Patient arrived in ED. as 10:37 Triage completed. sv 10:38 Arm band placed on. sv 11:01 Alejandro Barahona FNP-C [facility]. la1 11:01 Dwayne Hewitt MD is Attending Physician. la1 12:11 Acob, Zenobia, RN is Primary Nurse. ca1 12:20 Patient has correct armband on for positive identification. Placed in gown. Bed in low ca1 position. Call light in reach. Side rails up X2. Pulse ox on. NIBP on. Warm blanket given. 12:27 No provider procedures requiring assistance completed. Inserted saline lock: 22 gauge ca1 in right antecubital area, using aseptic technique. Blood collected. 12:27 Initial lab(s) drawn, by me, sent to lab. First set of blood cultures drawn by me. ca1 12:46 XRAY Chest Pa And Lat (2 Views) In Process Unspecified. EDMS 13:55 IV discontinued, intact, bleeding controlled, No redness/swelling at site. Pressure ca1 dressing applied. Administered Medications: 12:15 Drug: Xopenex (3) 1.25 mg Route: Inhalation; ca1 12:15 Drug: AtroVENT Aerosol 0.5 mg Route: Inhalation; ca1 12:30 Drug: SOLU-Medrol 125 mg Route: IVP; Site: right antecubital; ca1 13:54 Follow up: Response: No adverse reaction; Marked relief of symptoms ca1 Outcome: 13:34 Discharge ordered by MD. la1 14:03 Discharged to home ambulatory, with significant other. ca1 14:03 Condition: stable 14:03 Discharge instructions given to patient, Instructed on discharge instructions, follow up and referral plans. medication usage, Demonstrated understanding of instructions, follow-up care, medications, Prescriptions given X 3. 14:04 Patient left the ED. ca1 Signatures: Dispatcher [employer] EDMS Fannie Samuels RN RN sv Martinez, Amelia as Attema, Lee, BODY TRIMMER-C BODY TRIMMER-Cla1 Zenobia William, RN RN ca1 Corrections: (The following items were deleted from the chart) 10:38 10:36 Acuity: LUPILLO 4 sv sv
[2019-03-22 14:19] VITALS: TEMP 98.5; O2SAT 97
[2019-03-22 14:21] VITALS: BP 147/69
--- NOTE | 2019-03-22 14:43 | EKG ---
Test Date: 2019-03-22 Test Time: 13:45:41 Press Tender Long Goods: ISABEL MEASUREMENT RESULTS: Intervals: Rate: 80 LA: 196 QRSD: 86 QT: 396 QTc: 456 Etta: P: 86 LA: 196 QRS: 26 T: 88 INTERPRETIVE STATEMENTS: Normal sinus rhythm Normal ECG Compared to ECG 03/28/2018 16:56:56 Accelerated junctional rhythm no longer present Myocardial infarct finding no longer present Electronically Signed On 03-22-19 14:42:24 ABE TEACHER by Esau Lees
== END 2019-03-22 14:04 | disposition home or self-care (01) ==
LOC: ER 10:31
DX: J45.901 Unspecified asthma with (acute) exacerbation (principal); Z88.3 Allergy status to other anti-infective agents; Z88.1 Allergy status to other antibiotic agents; Z85.46 Personal history of malignant neoplasm of prostate
CPT/HCPCS: 93005; 87040 ×2; 85025; 80048; 36415; 83735; 85610; 85379; 80076; 85730; 84484; 83880; 71046; 96374; 99285; J2930

== ENCOUNTER 2019-04-15 00:17 | Observation (INO) | payer OTHER ==
--- OUTSIDE RECORDS SUMMARY | 2019-04-15 00:23 | XMS REPORT ---
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 Active Assessment Stage IV adenocarcinoma of prostate C61 Active Medications Medication Code Code Instructions Start End Status Dosage System Date Date ProAir HFA [facility] 07358204667 108 (90 Base) June Active 2 puffs as MCG/ACT 03, needed Inhalation 2018 every 6 hrs Zyrtec Allergy [facility] 02815643557 10 MG Orally Active 1 tablet Once a day Cyanocobalamin [facility] [address]-47 1000 MCG Orally Active as directed Leuprolide [facility] [address]-24 3.75 MG Active as Acetate Intramuscular directed Lipitor [facility] 90567047045 20 MG Orally Active 1 tablet Once a day Albuterol Sulfate [facility] 59710248182 108 (90 Base) Active 2 puffs as MCG/ACT needed Inhalation every 6 hrs Levothyroxine [facility] 81910923801 50 MCG Orally Active 1 tablet Sodium Once a day on an empty stomach in the morning Flonase [facility] 61810710106 50 MCG/ACT Active 1 spray in Nasally Once a each day nostril Advair Diskus [facility] 30604607591 250-50 MCG/DOSE Active 1 puff Inhalation Twice a day Primidone [facility] 54261419877 50 MG Orally Active 2 tablet BID Carbidopa-Levodop [facility] 85417863846 25-100 MG Active 1 tablet a Orally Once a day Dulera [facility] 56567216573 200-5 MCG/ACT Active 2 puffs Inhalation Twice a day Lisinopril [facility] 52921894955 2.5 MG Orally Active 1 tablet Once a day Metformin HCl [facility] 05065195884 1000 MG Orally Active 1 tablet Twice a day with a meal Fish Oil [facility] 49384110663 1000 MG Orally Active 1 capsule Once a day Senior Tabs [facility] 21033358053 - Orally Active as directed Levemir [facility] 20534456551 100 UNIT/ML Active as Subcutaneous directed Insulin Aspart [facility] [address]-08 100 UNIT/ML Active as Subcutaneous directed Bicalutamide [facility] 60857145738 50 MG Orally Active 1 tablet Once a day Aspir-81 [facility] 07726336846 81 MG Orally Active 1 tablet Once a day Levothyroxine [facility] 27159406760 200 MCG Orally Active 1 tablet Sodium Once a day on an empty stomach in the morning Results No Known Results Summary Purpose eClinicalWorks Submission
--- OUTSIDE RECORDS SUMMARY | 2019-04-15 00:24 | XMS REPORT ---
:1940 Author Organization eClinicalWorks Care Team Providers Name Role Phone GuidoGilson Provider Role Unavailable Allergies, Adverse Reactions, Alerts Substance Reaction Event Type Erythromycin rash Drug Allergy Problems Problem Type Condition Code Onset Dates Condition Status Assessment Noncompliance w/medication Z91.14 Active treatment due to intermit use of medication Assessment History of fall Z91.81 Active Assessment Skin lesions L98.9 Active Assessment Generalized weakness R53.1 Active Problem Stage IV adenocarcinoma of prostate C61 Active Assessment Essential tremor G25.0 Active Problem HTN, goal below 130/80 I10 Active Problem Asthma, unspecified asthma J45.909 Active severity, unspecified whether complicated, unspecified whether persistent Problem Allergic rhinitis, unspecified J30.9 Active seasonality, unspecified trigger Problem Parkinson disease G20 Active 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 Active Assessment Hypothyroidism, unspecified type E03.9 Active Assessment Asthma, unspecified asthma J45.909 Active severity, unspecified whether complicated, unspecified whether persistent Problem Moderate persistent asthma with J45.41 Active exacerbation Assessment Allergic rhinitis, unspecified J30.9 Active seasonality, unspecified trigger Problem Type 2 diabetes mellitus with other E11.69 Active specified complication Problem Hypothyroidism, unspecified type E03.9 Active Problem Mixed hyperlipidemia E78.2 Active Problem Essential tremor G25.0 Active Assessment Type 2 diabetes mellitus with other E11.69 Active specified complication Assessment alf current use of insulin Z79.4 Active Assessment Mixed hyperlipidemia E78.2 Active Assessment HTN, goal below 130/80 I10 Active Assessment Parkinson disease G20 Active Assessment Moderate persistent asthma with J45.41 Active exacerbation Assessment Stage IV adenocarcinoma of prostate C61 Active Assessment Lymphadenopathy, mediastinal R59.0 Active Medications Medication Code Code Instructions Start End Status Dosage System Date Date ProAir HFA [facility] [id number] (90 Base) June Active 2 puffs as MCG/ACT 03, needed Inhalation 2019 every [address] [facility] 81610439613 50 MCG/ACT Active 1 spray in Nasally Once a each day nostril Cyanocobalamin [facility] [address]-17 1000 MCG Orally Active as directed Zyrtec Allergy [facility] 89002204407 10 MG Orally Active 1 tablet Once a day Primidone [facility] 90482764018 50 MG Orally Active 2 tablet BID Insulin Aspart [facility] [address]-03 100 UNIT/ML Active as Subcutaneous directed Levothyroxine [facility] 72494027437 50 MCG Orally Active 1 tablet Sodium Once a day on an empty stomach in the morning Senior Tabs [facility] 13368543032 - Orally Active as directed Fish Oil [facility] 51256572124 1000 MG Orally Active 1 capsule Once a day Carbidopa-Levodop [facility] 73009568812 25-100 MG Active 1 tablet a Orally Once a day Lipitor [facility] 84453698912 20 MG Orally Active 1 tablet Once a day Albuterol Sulfate [facility] 07922332404 108 (90 Base) Active 2 puffs as MCG/ACT needed Inhalation every [address] [facility] 98550277018 250-50 MCG/DOSE Active 1 puff Inhalation Twice a day Levothyroxine [facility] 16294057537 200 MCG Orally Active 1 tablet Sodium Once a day on an empty stomach in the morning Levemir [facility] 58073339423 100 UNIT/ML Active as Subcutaneous directed Aspir-81 [facility] 84077884154 81 MG Orally Active 1 tablet Once a day Levothyroxine [facility] 68247511362 125 MCG Orally Active 2 tablet Sodium Twice a day Lisinopril [facility] 53703029156 2.5 MG Orally Active 1 tablet Once a day Dulera [facility] 81891030440 200-5 MCG/ACT Yoel Inactive 2 puffs Inhalation , Twice a day [address] [facility] [address]-24 3.75 MG Active as Acetate Intramuscular directed Bicalutamide [facility] 95824000869 50 MG Orally Active 1 tablet Once a day Metformin HCl [facility] 20759356235 1000 MG Orally Active 1 tablet Twice a day with a meal Results No Known Results Summary Purpose eClinicalWorks Submission
--- OUTSIDE RECORDS SUMMARY | 2019-04-15 00:24 | XMS REPORT ---
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 Medications Medication Code Code Instructions Start End Status Dosage System Date Date Fish Oil [facility] 10143484153 1000 MG Orally Active 1 capsule Once a day Prim[place] 61682332871 50 MG Orally Active 2 tablet BID Cyanocobalamin [facility] [address]-00 1000 MCG Orally Active as directed Levothyroxine ND 85100230932 50 MCG Orally Active 1 tablet Sodium Once a day on an empty stomach in the morning Levothyroxine [facility] 89331540960 200 MCG Orally Active 1 tablet Sodium Once a day on an empty stomach in the morning Senior Tabs [facility] 01972819821 - Orally Active as directed Levemir [facility] 61274693302 100 UNIT/ML Active as Subcutaneous directed Zyrtec Allergy [facility] 14105007915 10 MG Orally Active 1 tablet Once a day Lipitor [facility] 06855897797 20 MG Orally Active 1 tablet Once a day Levothyroxine [facility] [address]-39 125 MCG Orally Active 2 tablet Sodium Twice a day Aspir-81 [facility] 88572950087 81 MG Orally Active 1 tablet Once a day Advair Diskus [facility] 35999556572 250-50 MCG/DOSE Active 1 puff Inhalation Twice a day Flonase [facility] 01791669460 50 MCG/ACT Active 1 spray in Nasally Once a each day nostril Insulin Aspart [facility] [address]-04 100 UNIT/ML Active as Subcutaneous directed Albuterol Sulfate [facility] 63418166514 108 (90 Base) Active 2 puffs as MCG/ACT needed Inhalation every 6 hrs Leuprolide [facility] [address]-30 3.75 MG Active as Acetate Intramuscular directed Bicalutamide [facility] 06235553236 50 MG Orally Active 1 tablet Once a day Carbidopa-Levodop [facility] 50229660670 25-100 MG Active 1 tablet a Orally Once a day ProAir HFA [facility] 10457564797 108 (90 Base) June Active 2 puffs as MCG/ACT 03, needed Inhalation 2019 every 6 hrs Lisinopril [facility] 63868466676 2.5 MG Orally Active 1 tablet Once a day Metformin HCl [facility] 90138648078 1000 MG Orally Active 1 tablet Twice a day with a meal Dulera [facility] 52812064897 200-5 MCG/ACT Active 2 puffs Inhalation Twice a day Results No Known Results Summary Purpose eClinicalWorks Submission
[2019-04-15] MEDS ORDERED: IPRATROPIUM BROM 0.5MG/2.5ML ONE (01:03)
[2019-04-15] MEDS ORDERED: METHYLPREDNISOLONE 125 MG INJ ONE (01:03)
[2019-04-15] MEDS ORDERED: LEVALBUTEROL 1.25 MG/3 ML NEB ONE (01:04)
[2019-04-15] MEDS ORDERED: FAMOTIDINE 20 MG/2 ML VIAL IV ONE (01:04)
[2019-04-15] MEDS ORDERED: NA CHLORIDE 0.9% 1,000 ML ONE (01:04)
[2019-04-15 01:26] LABS: Absolute Lymphocytes (CBC) 2.2 K/uL (0.7-4.9); Basophils % 0.8 % (0-1.3); Hematocrit 33.9 % (39.6-49.0); Lymphocytes % 23.7 % (15.3-44.8); MPV 7.2 fL (7.6-11.3); RBC Red Blood Cell Count 3.95 M/uL (4.33-5.43)
--- NOTE | 2019-04-15 02:02 | ER ---
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 Pt has not been able to get a deep breath the last couple of days he has been using his rescue inhaler and neb treatments but still feels like he can't get a deep breath. Transition of care: patient was not received from another setting of care. Onset of symptoms was April 13, 2019. Risk Assessment: Do you want to hurt yourself or someone else? Patient reports no desire to harm self or others. Initial Sepsis Screen: Does the patient meet any 2 criteria? No. Patient's initial sepsis screen is negative. Does the patient have a suspected source of infection? No. Patient's initial sepsis screen is negative. Care prior to arrival: None. 00:41 Method Of Arrival: Wheelchair bb 00:41 Acuity: LUPILLO 2 bb Triage Assessment: 02:59 General: Behavior is calm, cooperative. rv 02:59 Respiratory: Reports shortness of breath Onset: The symptoms/episode began/occurred rv gradually, the patient has mild shortness of breath. Historical: - Allergies: 00:55 Erythromycin; bb 00:55 Levofloxacin; bb - Home Meds: 00:55 atorvastatin 40 mg oral tab 1 tab once daily [Active]; bicalutamide 50 mg oral tab 1 bb tab once daily [Active]; calcium 500 mg / vit D 200 [Active]; carbidopa-levodopa 50-200 mg Oral TbER 1 tab 2 times per day [Active]; cetirizine 10 mg oral tab 1 tab once daily [Active]; Vit D3 400 BID [Active]; B 12 500 mcg [Active]; benadryl [Active]; etodolac 300 mg Oral cap 1 cap 3 times per day [Active]; Fish Oil oral oral [Active]; fluticasone inhalation inhalation [Active]; dilaudid [Active]; insulin aspart subcutaneous subcutaneous [Active]; Insulin Glargine Sub-Q [Active]; levprolide [Active]; levothyroxine 125 mcg tab 1 tab once daily [Active]; lisinopril 2.5 mg Oral tab 1 tab once daily [Active]; metformin 1,000 mg Oral tab 1 tab 2 times per day [Active]; Multiple Vitamins oral tab [Active]; primidone 50 mg Oral tab twice a day [Active]; Advair Diskus Inhl [Active]; Albuterol Inhl [Active]; Albuterol Nebulizer [Active]; - PMHx: 00:55 Diabetes - IDDM; familial tremors; Hypothyroidism; plural effusion; Pneumonia; Prostate bb Cancer; thoracentisis; - PSHx: 00:55 Cholecystectomy; prostate removal; shoulder; bb - Immunization history:: Adult Immunizations up to date. - Coronavirus screen:: The patient has NOT traveled to [place], [place], or [place] in the past 14 days. Proceed with normal triage process as indicated. - Family history:: not pertinent. - Social history:: Smoking status: Patient/guardian denies using tobacco, the patient reports quitting approximately 25 years ago. - Ebola Screening: : No symptoms or risks identified at this time. Screenin:56 Abuse screen: Denies threats or abuse. Denies injuries from another. Nutritional rv screening: No deficits noted. Tuberculosis screening: No symptoms or risk factors identified. Fall Risk None identified. Assessment: 02:55 General: Appears in no apparent distress. Pain: Denies pain. Neuro: Level of rv Consciousness is awake, alert, obeys commands, Oriented to person, place, time, situation. Cardiovascular: Patient's skin is warm and dry. Rhythm is regular. Respiratory: Airway is patent Respiratory effort is even, Breath sounds with wheezes bilaterally. Derm: Skin is intact. 03:22 Reassessment: Patient and/or family updated on plan of care and expected duration. Pain fu level reassessed. Patient is alert, oriented x 3, equal unlabored respirations, skin warm/dry/pink. Patient states feeling better. Vital Signs: 00:55 BP 138 / 56; Pulse 90; Resp 20 S; Temp 98.7(O); Pulse Ox 94% on R/A; Weight 108.41 kg bb (R); Height 6 ft. 0 in. (182.88 cm) (R); Pain 0/10; 01:00 BP 126 / 55; Pulse 83; Pulse Ox 95% on R/A; Pain 0/10; fu 02:00 BP 136 / 50; Pulse 92; Resp 20; Pulse Ox 97% on R/A; Pain 0/10; fu 02:45 BP 130 / 50; Pulse 86; Resp 25; Pulse Ox 91% on R/A; Pain 0/10; fu 00:55 Body Mass Index 32.41 (108.41 kg, 182.88 cm) bb ED Course: 00:19 Patient arrived in ED. jg7 00:30 Duglas Fong, JOSE ANTONIO is Primary Nurse. fu 00:34 Dwayne Hewitt MD is Attending Physician. [facility] 00:45 Triage completed. bb 00:55 Arm band placed on Patient placed in an exam room, on a stretcher, on pulse oximetry. bb Family accompanied patient. 01:27 Radiology exam delayed due to lab results not completed at this time. (BUN/Creatinine). kw1 01:30 No provider procedures requiring assistance completed. Inserted saline lock: 20 gauge rv in right forearm, using aseptic technique. Blood collected. 01:52 XRAY Chest (1 view) In Process Unspecified. EDMS 01:56 Kennedy Rodriguez is Hospitalizing Provider. [facility] 02:00 Radiology exam delayed due to lab results not completed at this time. (BUN/Creatinine). kw1 02:59 Patient has correct armband on for positive identification. compliance monitor on. Pulse rv ox on. NIBP on. 04:03 Patient admitted, IV remains in place. fu Administered Medications: 01:20 Drug: Xopenex 3.75 mg Route: Inhalation; fu 02:00 Follow up: Response: Marked relief of symptoms fu 01:20 Drug: AtroVENT Aerosol 0.5 mg Route: Inhalation; fu 03:28 Follow up: Response: Marked relief of symptoms fu 01:28 Drug: Pepcid 20 mg Route: IVP; Site: right forearm; fu 02:28 Follow up: Response: No adverse reaction fu 01:29 Drug: SOLU-Medrol 125 mg Route: IVP; Site: right forearm; fu 02:00 Follow up: Response: No adverse reaction fu 01:30 Drug: NS 0.9% 1000 ml Route: IV; Rate: 125 ml/hr; Site: right forearm; fu Outcome: 01:57 Decision to Hospitalize by Provider. [facility] 04:02 Admitted to Med/surg accompanied by tech, room 210, Report called to JOSE ANTONIO Reyes fu 04:02 Condition: stable 04:02 Instructed on the need for admit. 04:25 Patient left the ED. rv Signatures: Dispatcher [employer] EDDwayne Sneed MD MD cha Ballard, Brenda, RN RN Duglas Marroquin RN RN fu Wilhelm, Kimberly kw1 Dominic Charles RN RN Millie Hydeg7 Corrections: (The following items were deleted from the chart) 03:25 03:00 BP 136 / 50; Pulse 92bpm; Resp 20bpm; Pulse Ox 97% RA; Pain 0/10; fu fu
--- NOTE | 2019-04-15 02:03 | EDPHYS ---
Physician Documentation [facility] Name: John Dave Age: 78 yrs Sex: Male : 1940 Arrival Date: 04/15/2019 Time: 00:19 Bed 18 Private MD: Dwayne Acevedo HPI: 04/15 00:53 This 78 yrs old Male presents to ER via Wheelchair with complaints of kaiser Breathing Difficulty. 00:53 The patient has shortness of breath at rest, with light activity. Onset: The kaiser symptoms/episode began/occurred 3 day(s) ago. Duration: The symptoms are continuous, and are steadily getting worse. The patient's shortness of breath has no apparent modifying factors. Associated signs and symptoms: Pertinent positives: non-productive cough. Severity of symptoms: At their worst the symptoms were moderate in the emergency department the symptoms are unchanged. The patient has not experienced similar symptoms in the past. Historical: - Allergies: 00:55 Erythromycin; bb 00:55 Levofloxacin; bb - Home Meds: 00:55 atorvastatin 40 mg oral tab 1 tab once daily [Active]; bicalutamide 50 mg oral tab 1 bb tab once daily [Active]; calcium 500 mg / vit D 200 [Active]; carbidopa-levodopa 50-200 mg Oral TbER 1 tab 2 times per day [Active]; cetirizine 10 mg oral tab 1 tab once daily [Active]; Vit D3 400 BID [Active]; B 12 500 mcg [Active]; benadryl [Active]; etodolac 300 mg Oral cap 1 cap 3 times per day [Active]; Fish Oil oral oral [Active]; fluticasone inhalation inhalation [Active]; dilaudid [Active]; insulin aspart subcutaneous subcutaneous [Active]; Insulin Glargine Sub-Q [Active]; levprolide [Active]; levothyroxine 125 mcg tab 1 tab once daily [Active]; lisinopril 2.5 mg Oral tab 1 tab once daily [Active]; metformin 1,000 mg Oral tab 1 tab 2 times per day [Active]; Multiple Vitamins oral tab [Active]; primidone 50 mg Oral tab twice a day [Active]; Advair Diskus Inhl [Active]; Albuterol Inhl [Active]; Albuterol Nebulizer [Active]; - PMHx: 00:55 Diabetes - IDDM; familial tremors; Hypothyroidism; plural effusion; Pneumonia; Prostate bb Cancer; thoracentisis; - PSHx: 00:55 Cholecystectomy; prostate removal; shoulder; bb - Immunization history:: Adult Immunizations up to date. - Coronavirus screen:: The patient has NOT traveled to [place], [place], or [place] in the past 14 days. Proceed with normal triage process as indicated. - Family history:: not pertinent. - Social history:: Smoking status: Patient/guardian denies using tobacco, the patient reports quitting approximately 25 years ago. - Ebola Screening: : No symptoms or risks identified at this time. ROS: 00:53 Constitutional: Negative for fever, chills, and weight loss, Eyes: Negative for injury, kaiser pain, redness, and discharge, ENT: Negative for injury, pain, and discharge, Neck: Negative for injury, pain, and swelling, Cardiovascular: Negative for chest pain, palpitations, and edema, Abdomen/GI: Negative for abdominal pain, nausea, vomiting, diarrhea, and constipation, Back: Negative for injury and pain, : Negative for injury, bleeding, discharge, and swelling, MS/Extremity: Negative for injury and deformity, Skin: Negative for injury, rash, and discoloration, Neuro: Negative for headache, weakness, numbness, tingling, and seizure, Psych: Negative for depression, anxiety, suicide ideation, homicidal ideation, and hallucinations, Allergy/Immunology: Negative for hives, rash, and allergies, Endocrine: Negative for neck swelling, polydipsia, polyuria, polyphagia, and marked weight changes, Hematologic/Lymphatic: Negative for swollen nodes, abnormal bleeding, and unusual bruising. 00:53 Respiratory: Positive for cough, shortness of breath, at rest. wheezing, expiratory. Exam: 00:53 Constitutional: This is a well developed, well nourished patient who is awake, alert, kaiser and in no acute distress. Head/Face: Normocephalic, atraumatic. Eyes: Pupils equal round and reactive to light, extra-ocular motions intact. Lids and lashes normal. Conjunctiva and sclera are non-icteric and not injected. Cornea within normal limits. Periorbital areas with no swelling, redness, or edema. ENT: Nares patent. No nasal discharge, no septal abnormalities noted. Tympanic membranes are normal and external auditory canals are clear. Oropharynx with no redness, swelling, or masses, exudates, or evidence of obstruction, uvula midline. Mucous membranes moist. Neck: Trachea midline, no thyromegaly or masses palpated, and no cervical lymphadenopathy. Supple, full range of motion without nuchal rigidity, or vertebral point tenderness. No Meningismus. Chest/axilla: Normal chest wall appearance and motion. Nontender with no deformity. No lesions are appreciated. Cardiovascular: Regular rate and rhythm with a normal S1 and S2. No gallops, murmurs, or rubs. Normal PMI, no JVD. No pulse deficits. Abdomen/GI: Soft, non-tender, with normal bowel sounds. No distension or tympany. No guarding or rebound. No evidence of tenderness throughout. Back: No spinal tenderness. No costovertebral tenderness. Full range of motion. Male : Normal genitalia with no discharge or lesions. Skin: Warm, dry with normal turgor. Normal color with no rashes, no lesions, and no evidence of cellulitis. MS/ Extremity: Pulses equal, no cyanosis. Neurovascular intact. Full, normal range of motion. Neuro: Awake and alert, GCS 15, oriented to person, place, time, and situation. Cranial nerves II-XII grossly intact. Motor strength 5/5 in all extremities. Sensory grossly intact. Cerebellar exam normal. Normal gait. Psych: Awake, alert, with orientation to person, place and time. Behavior, mood, and affect are within normal limits. 00:53 Respiratory: mild respiratory distress is noted, Respirations: no acute changes, Breath sounds: bronchial sounds, decreased breath sounds, rhonchi, wheezing: expiratory Vital Signs: 00:55 BP 138 / 56; Pulse 90; Resp 20 S; Temp 98.7(O); Pulse Ox 94% on R/A; Weight 108.41 kg bb (R); Height 6 ft. 0 in. (182.88 cm) (R); Pain 0/10; 01:00 BP 126 / 55; Pulse 83; Pulse Ox 95% on R/A; Pain 0/10; fu 02:00 BP 136 / 50; Pulse 92; Resp 20; Pulse Ox 97% on R/A; Pain 0/10; fu 02:45 BP 130 / 50; Pulse 86; Resp 25; Pulse Ox 91% on R/A; Pain 0/10; fu 00:55 Body Mass Index 32.41 (108.41 kg, 182.88 cm) bb MDM: 00:34 Patient medically screened. [facility] 00:54 Data reviewed: vital signs, nurses notes, lab test result(s), EKG, radiologic studies, [facility] CT scan, plain films. 04/15 00:52 Order name: Basic Metabolic Panel; Complete Time: 03:14 [facility] 04/15 00:52 Order name: CBC with Diff; Complete Time: 01:55 [facility] 04/15 00:52 Order name: LFT's; Complete Time: 03:14 [facility] 04/15 00:52 Order name: Magnesium; Complete Time: 03:14 [facility] 04/15 00:52 Order name: NT PRO-BNP; Complete Time: 03:14 [facility] 04/15 00:52 Order name: PT-INR [facility] 04/15 00:52 Order name: Troponin (emerg Dept Use Only); Complete Time: 03:14 [facility] 04/15 00:52 Order name: XRAY Chest (1 view) [facility] 04/15 00:52 Order name: Blood Culture Adult (2) [facility] 04/15 00:52 Order name: CT Chest For PE Angio [facility] 04/15 00:52 Order name: EKG; Complete Time: 00:55 [facility] 04/15 00:52 Order name: Cardiac monitoring; Complete Time: 01:31 [facility] 04/15 00:52 Order name: EKG - Nurse/Tech; Complete Time: 01:30 [facility] 04/15 00:52 Order name: IV Saline Lock; Complete Time: 01:30 [facility] 04/15 00:52 Order name: Labs collected and sent; Complete Time: 01:30 [facility] 04/15 00:52 Order name: O2 Per Protocol; Complete Time: 01:30 [facility] 04/15 00:52 Order name: O2 Sat Monitoring; Complete Time: 01:30 [facility] 04/15 00:52 Order name: Urine Dipstick-Ancillary (obtain specimen) [facility] Administered Medications: 01:20 Drug: Xopenex 3.75 mg Route: Inhalation; fu 02:00 Follow up: Response: Marked relief of symptoms fu 01:20 Drug: AtroVENT Aerosol 0.5 mg Route: Inhalation; fu 03:28 Follow up: Response: Marked relief of symptoms fu 01:28 Drug: Pepcid 20 mg Route: IVP; Site: right forearm; fu 02:28 Follow up: Response: No adverse reaction fu 01:29 Drug: SOLU-Medrol 125 mg Route: IVP; Site: right forearm; fu 02:00 Follow up: Response: No adverse reaction fu 01:30 Drug: NS 0.9% 1000 ml Route: IV; Rate: 125 ml/hr; Site: right forearm; fu Disposition: 04/15/19 01:57 Hospitalization ordered by Kennedy Rodriguez for Inpatient Admission. Preliminary diagnosis are Chronic obstructive pulmonary disease with (acute) exacerbation, Dyspnea, Hypoxemia, Type 1 diabetes mellitus. - Bed requested for Telemetry/MedSurg (Inpatient). - Status is Inpatient Admission. rv - Condition is Fair. - Problem is new. - Symptoms have improved. Signatures: Dispatcher [employer] EDMS Dwayne Hewitt MD MD cha Ballard, Brenda, RN RN bb Garcia, Cindy, RN RN cg Umadhay, Felix, RN RN fu Vicente, Ronaldo, RN RN rv Corrections: (The following items were deleted from the chart) 03:44 01:57 Hospitalization Ordered by Kennedy Rodriguez for Inpatient Admission. Preliminary cg diagnosis is Chronic obstructive pulmonary disease with (acute) exacerbation; Dyspnea; Hypoxemia; Type 1 diabetes mellitus. Bed requested for Telemetry/MedSurg (Inpatient). Status is Inpatient Admission. Condition is Fair. Problem is new. Symptoms have improved. [facility] 04:25 03:44 04/15/2019 01:57 Hospitalization Ordered by Kennedy Rodriguez for Inpatient rv Admission. Preliminary diagnosis is Chronic obstructive pulmonary disease with (acute) exacerbation; Dyspnea; Hypoxemia; Type 1 diabetes mellitus. Bed requested for Telemetry/MedSurg (Inpatient). Status is Inpatient Admission. Condition is Fair. Problem is new. Symptoms have improved. cg
[2019-04-15 02:05] LABS: Protime INR 1.05
[2019-04-15 02:27] LABS: ALT/SGPT 15 U/L (12-78); AST/SGOT 25 U/L (15-37); Alkaline Phosphatase 185 U/L (45-117); BUN Blood Urea Nitrogen 12 mg/dL (7-18); Bicarbonate 25 mmol/L (21-32); Bilirubin Direct 0.1 mg/dL (0-0.2); Bilirubin Total 0.3 mg/dL (0.2-1.0); Glucose Level 311 mg/dL (74-106); Magnesium 1.8 mg/dL (1.8-2.4); NT PRO-BNP 123 pg/mL (<450); Potassium 4.2 mmol/L (3.5-5.1); Protein, Total 7.1 g/dL (6.4-8.2); Sodium Level 134 mmol/L (136-145); Troponin (Emerg Dept Use Only) < 0.02 ng/mL (0.0-0.045)
--- NOTE | 2019-04-15 03:26 | P.HP ---
Certification for Inpatient Patient admitted to: Observation With expected LOS: <2 Midnights Practitioner: I am a practitioner with admitting privileges, knowledge of patient current condition, hospital course, and medical plan of care. 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 Patient reports intermittent shortness of breath with cough and wheezing. He has never been diagnosed with COPD and has been scheduled to have a pulmonary function test done. Patient stated he could not catch his breath a few hrs ago. He denied any chest pain or palpitation. In the ED, his shortness of breath significantly improved after nebulizer treatment. Chest x-ray demonstrated no acute disease. EKG is unremarkable. He has no leukocytosis. COPD exacerbation is suspected. Patient is placed under observation for further management. Allergies levofloxacin Allergy (Verified 04/15/19 04:45) Unknown amoxicillin [From Augmentin] Adverse Reaction (Verified 04/15/19 04:45) diarrhea clavulanic acid [From Augmentin] Adverse Reaction (Verified 04/15/19 04:45) diarrhea erythromycin Allergy (Uncoded 04/15/19 04:44) Unknown Home Medications: Aspirin Chewable [Aspirin Chewable*] 81 mg PO DAILY 03/28/18 Atorvastatin Calcium [Lipitor*] 20 mg PO BEDTIME 03/28/18 Bicalutamide [Casodex] 1 tab PO DAILY 03/28/18 Cetirizine HCl [Zyrtec*] 5 mg PO BEDTIME 03/28/18 Cyanocobalamin (Vitamin B-12) [B-12] 1 tab PO DAILY 03/28/18 Docosahexanoic AC/Epa [Fish Oil 1,000 MG*] 1,000 mg PO DAILY 03/28/18 Fluticasone [Flonase 50MCG Nasal Webster*] 2 sprays NS BID 03/28/18 Insulin Aspart [Novolog] 50 unit SQ TID 03/28/18 Insulin Detemir [Levemir] 40 units SQ BID 03/28/18 Leuprolide Acetate [Lupron Depot] 3.75 mg IM DIRECTED 03/28/18 Levothyroxine [Synthroid*] 250 mcg PO [id number] 03/28/18 Lisinopril [Zestril] 2.5 mg PO DAILY 03/28/18 Metformin HCl 1,000 mg PO BIDWM 03/28/18 Multivit-Min/FA/Lycopen/Lutein [Senior Tabs] 1 each PO DAILY 03/28/18 Primidone [Mysoline *] 100 mg PO BID 03/28/18 Albuterol Inhaler [Ventolin Inhaler*] 2 puff IN Q6HR PRN #1 hfa.aer.ad 03/29/18 Codeine/APAP [Tylenol #3*] 1 tab PO TID PRN #15 tab 03/29/18 Fluticasone/Salmeterol [Advair 250-50 Diskus] 1 puff IH BID #1 blst.w.dev Mometasone/Formoterol [Dulera 200 Mcg/5 Mcg Inhaler] 2 puff IH BID #1 inhaler traMADol HCL [Ultram*] 50 mg PO TID PRN #20 tab 03/29/18 - Past Medical/Surgical History Diabetic: Yes -: IDDM -: hypohtyroidism -: familial tremor -: hyperlipidemia -: right hand tremors -: pneumonia 1960 1986 -: Cholecystectomy; shoulder; prostate removal -: shoulder bone spur 1990 -: prostate removal (CANCER) 2006 -: radiation 2006 no chemo - Family History Mother -: Diabetes Father Notes: aortic aneurysm (passed from) - Social History Alcohol use: No CD- Drugs: No Caffeine use: Yes Review of Systems Other: General: No fever, no malaise, no unintentional weight loss. Eyes: No eye discharge, CVS: No chest pain, no palpitation, no lightheadedness. GI: No abdominal pain, no nausea no vomit, no constipation, no diarrhea. Genitourinary: No dysuria, no urinary frequency, no incontinence, no hematuria. Musculoskeletal: No joint pains, or joint swelling, no gait instability. Neurology: No headache, no asymmetric weakness, no problem with swallowing. Except as documented, all other systems reviewed and negative. Physical Examination - Physical Exam General: Alert, In no apparent distress, Oriented x3, Obese HEENT: Mucous membr. moist/pink, Sclerae nonicteric Neck: Supple, JVD not distended Respiratory: Clear to auscultation bilaterally, Normal air movement Cardiovascular: No edema, Normal pulses, Regular rate/rhythm, Normal S1 S2 Capillary refill: <2 Seconds Gastrointestinal: Normal bowel sounds, Soft and benign, Non-distended, No tenderness Musculoskeletal: No swelling, No erythema Integumentary: No rashes Neurological: Normal speech, Normal strength at 5/5 x4 extr - Studies Laboratory Data (last 24 hrs) 04/15/19 01:53: PT 12.4, INR 1.05 04/15/19 01:53: Sodium 134 L, Potassium 4.2, BUN 12, Creatinine 0.87, Glucose 311 H, Magnesium 1.8, Total Bilirubin 0.3, AST 25, ALT 15, Alkaline Phosphatase 185 H 04/15/19 01:14: WBC 9.4, Hgb 11.4 L, Hct 33.9 L, Plt Count 351 Assessment and Plan - Problems (Diagnosis) (1) COPD exacerbation Current Visit: Yes Status: Acute (2) Lung metastasis Current Visit: Yes Status: Acute (3) Diabetes mellitus Onset Date: 03/29/18 Current Visit: No Status: Acute Qualifiers: Diabetes mellitus type: type 2 Diabetes mellitus nursing home insulin use: with nursing home use Diabetes mellitus complication status: with unspecified complications (4) Hypothyroidism Onset Date: 03/29/18 Current Visit: No Status: Acute Qualifiers: Hypothyroidism type: unspecified Qualified Code(s): E03.9 - Hypothyroidism , unspecified - Plan Place under observation. Scheduled nebulizer treatments Oral prednisone Oral doxycycline Blood glucose monitoring Insulin sliding scale for glucose management. Watch for steroid induced hyperglycemia. Supplemental oxygen as needed. - Advance Directives Does patient have a Living Will: No Does patient have a Durable POA for Healthcare: No
[2019-04-15 04:47] VITALS: BMI 32.1
[2019-04-15] MEDS ORDERED: ONDANSETRON 4 MG/2 ML VIAL IV PRN (05:30)
[2019-04-15] MEDS: IPRATROPIUM BROM 0.5MG/2.5ML NEB SCH ×3 (08:00→19:45)
[2019-04-15] MEDS: ALBUTEROL 2.5 MG/3 ML NEB SOL NEB SCH ×3 (08:33→19:45)
[2019-04-15] MEDS: predniSONE 20 MG TAB PO SCH (09:37)
[2019-04-15] MEDS: INSULIN -REGULAR HUMAN 50 UNIT/0.5 ML ML SQ SCH ×4 (09:37→20:28)
[2019-04-15] MEDS: DOXYCYCLINE 100 MG CAP PO SCH ×2 (09:38→20:32)
[2019-04-15] MEDS: HEPARIN 5000 UNIT/ML 1 ML VIAL SQ SCH ×2 (09:38→17:02)
--- NOTE | 2019-04-15 12:12 | RAD REPORT ---
EXAM DESCRIPTION: CT - Chest For Pe Angio - 04/15/2019 6:07 am CLINICAL HISTORY: COPD;Cough;Dyspnea COMPARISON: None. TECHNIQUE: Axial CT imaging of the thorax utilizing intravenous contrast. Reformatted multiplanar im ages obtained including reconstructed maximum intensity projection images. This exam was performed according to our departmental dose-optimization program which includes automa pamela exposure control, adjustment of the mA and/or kV according to patient size and/or use of iterativ e reconstruction technique FINDINGS: PULMONARY ARTERIES: Normal caliber main pulmonary artery. No filling defect in the right atrium or ventricle. No pulmonary artery filling defect. HEART/GREAT VESSELS: Heart is normal in size. Small pericardial effusion. There is diffuse atheroscl erosis of the thoracic aorta. No aneurysm. Normal branch pattern of the arch vessels. MEDIASTINUM/CHARLA: There is significant adenopathy throughout the mediastinum. There is a confluent s oft tissue collection along the right paratracheal space and into the precarinal space collectively 8 .7 x 3.6 x 4.3 cm. Subcarinal omid collection is 3.6 x 2.5 x 3.5 cm. Enlarged right hilar nodes priyanka ure up to 2.8 x 2.3 x 5.2 cm. There is an enlarged left infrahilar node, 1.3 x 1.9 x 2.0 cm. Normal a ppearance of the trachea. There is significant right bronchial thickening. Esophagus is mildly thicke barbara diffusely. LUNGS/PLEURA: The posterior right hilar soft tissue collection extends into the posterior aspect of the superior segment of the right lower lobe. There is mild thickening of the right major fissure. Th ere is a lobular soft tissue mass centered along the inferior aspect of the right major fissure exten ding into the posterior aspect of the right middle lobe and anterior right lower lobe, 5.7 x 3.7 x 3. 2 cm. There are small ill-defined nodular opacities in the peripheral right lower lobe. Left lung is clear. No pleural fluid or pneumothorax. CHEST WALL/SOFT TISSUES: Unremarkable included portions of the thyroid. No subclavicular axillary ad enopathy. The sternum is intact. There is significant spondylosis throughout the thoracic spine. Ther e is patchy sclerosis within the T8 and T11 vertebral bodies. Intact remaining bony thorax. UPPER ABDOMEN: There are three hypodense masses within the liver. One is in the left lobe, 3.4 cm. T he central mass is at the junction of the right and left lobe, 3.4 cm. The third is in the superior r ight lobe, 2.8 cm. The spleen is enlarged to 14.3 cm. There is a gastrohepatic enlarged lymph node, 1 .6 x 1.3 x 1.3 cm. IMPRESSION: 1. No pulmonary embolism. 2. Large lobular mass centered along the inferior aspect of the right major fissure extending into th e right middle and lower lobe compatible with malignancy until proven otherwise. There is significant associated mediastinal and right hilar adenopathy compatible with metastatic omid spread. 3. Bronchial thickening compatible with superimposed bronchitis and/or lymphangitic neoplastic spread . 4. Thickened esophagus suggestive of esophagitis. 5. Small pericardial effusion. 6. Three hepatic masses identified suspicious for metastatic disease. 7. Splenomegaly. 8. Sclerotic densities within the T8 and T11 vertebral bodies concerning for osseous metastasis. Electronically signed by: Stefania Garay DO 04/15/2019 4:28 AM [facility] Due to temporary technical issues with the PACS/Fluency reporting system, reports are being signed by the in house radiologist as a courtesy to ensure prompt reporting. The interpreting radiologist is f susannely responsible for the content of the report.
[2019-04-15] MEDS ORDERED: D50W 25 GM/50 ML SYRINGE/VIAL IV PRN (12:39)
[2019-04-15] MEDS ORDERED: GLUCAGON 1 MG/VIAL IM PRN (12:39)
--- NOTE | 2019-04-15 12:53 | RAD REPORT ---
EXAM DESCRIPTION: RADChest Single View04/15/2019 1:50 am CLINICAL HISTORY: Cough FINDINGS: Right basilar opacity/mass. Mediastinal and right hilar lymphadenopathy. Left lung appears clear of acute infiltrate. Central venous catheter with its tip in the superior anne a cava
--- NOTE | 2019-04-15 17:38 | PN ---
Date of Progress Note: 04/15/2019 Subjective: Patient is seen and examined. Chart reviewed and case discussed with RN. Patient is st ill having some significant difficulties breathing and some wheezing, currently on nebulizer treatmen t. Medications: List reviewed. Code Status: Full. Physical Examination: Vital Signs: Temperature 97.7, heart rate 91, blood pressure 158/73, respirations 20, O2 of 98% on 2 L via nasal cannula. General: Awake, alert, oriented x3, in some mild respiratory distress. Elderly male, ill-appearing, obese, BMI 32. CV: S1, S2. Regular rate and rhythm. Peripheral pulses present. Respiratory: Diminished breath sounds. Wheezing is heard. Patient is slightly tachypneic. No use of accessory muscles. Gastrointestinal: Abdomen is soft, nontender, nondistended. Positive bowel sounds. Extremities: No clubbing, cyanosis, or edema. Neurologic: Nonfocal. Laboratory Data: TSH is 8. Blood glucose levels ranging between [address] angio chest shows no PE. Multiple metastatic lesions in the lungs, liver, and osseous structures. Cultures are pendin g. Assessment: 78-year-old male with known history of metastatic prostate cancer to the lungs, liver an d bone with: 1.Acute chronic obstructive pulmonary disease exacerbation. We will continue with nebulizer treatme nts and steroids. Continue supplemental oxygen, currently on 2 L. 2.Acute respiratory distress, requiring oxygen with hypoxia. 3.Lung metastases. 4.Prostate cancer with diffuse metastases, stage IV, currently on chemotherapy, port has been placed . 5.Diabetes mellitus type 2 with long-term use of insulin with hyperglycemia. We will adjust insulin sliding scale. May need to add long acting insulin while on heavy steroids. 6.Hypothyroidism. We will adjust Synthroid dose. Plan: Continue monitoring. Wean off oxygen as tolerated. Likely discharge in the next 24 hours dep ending on clinical response. May need to set up with home O2. DVT prophylaxis. Patient is on hepar in. SA/MODL Voice ID: [id number] Report ID: [id number]
[2019-04-15] MEDS ORDERED: INSULIN GLARGINE 100 UNITS/ML SQ SCH (21:00)
[2019-04-15] MEDS ORDERED: ATORVASTATIN 20 MG TAB PO SCH (21:00)
[2019-04-15] MEDS ORDERED: INSULIN DETEMIR 40 UNIT SQ SCH (21:00)
[2019-04-15] MEDS ORDERED: CETIRIZINE HCL 5 MG TABLET PO SCH (21:00)
[2019-04-15] MEDS ORDERED: HOME MED 1 EA UNK (Fluticasone/Salmeterol [Advair 250-50 Diskus] 1 PUFF) IH SCH (21:00)
[2019-04-16] MEDS: HEPARIN 5000 UNIT/ML 1 ML VIAL SQ SCH ×2 (00:55→08:46)
[2019-04-16] MEDS: IPRATROPIUM BROM 0.5MG/2.5ML NEB SCH ×2 (01:50→07:45)
[2019-04-16] MEDS: ALBUTEROL 2.5 MG/3 ML NEB SOL NEB SCH ×2 (01:50→07:45)
[2019-04-16] MEDS ORDERED: MELATONIN 3 MG TABLET PO ONE (02:28)
[2019-04-16] MEDS ORDERED: LEVOTHYROXINE SOD 0.125 MG TAB PO SCH (06:00)
[2019-04-16 06:12] LABS: Absolute Lymphocytes (CBC) 2.5 K/uL (0.7-4.9); Basophils % 0.6 % (0-1.3); Hematocrit 32.2 % (39.6-49.0); MPV 7.1 fL (7.6-11.3); RBC Red Blood Cell Count 3.78 M/uL (4.33-5.43)
--- NOTE | 2019-04-16 06:27 | EKG ---
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
[2019-04-16 06:28] LABS: BUN Blood Urea Nitrogen 13 mg/dL (7-18); Bicarbonate 27 mmol/L (21-32); Glucose Level 176 mg/dL (74-106); Magnesium 1.9 mg/dL (1.8-2.4); Phosphorus 3.2 mg/dL (2.5-4.9); Sodium Level 136 mmol/L (136-145)
[2019-04-16] MEDS: INSULIN -REGULAR HUMAN 50 UNIT/0.5 ML ML SQ SCH (07:30)
[2019-04-16] MEDS: predniSONE 20 MG TAB PO SCH (08:46)
[2019-04-16] MEDS: DOXYCYCLINE 100 MG CAP PO SCH (08:48)
[2019-04-16] MEDS ORDERED: HOME MED 1 EA UNK (Lisinopril [Zestril] 2.5 MG) PO SCH (09:00)
[2019-04-16] MEDS ORDERED: ASPIRIN 81 MG CHEWABLE TABLET PO SCH (09:00)
[2019-04-16] MEDS ORDERED: lisinopriL 5 MG TAB PO SCH (09:00)
[2019-04-16] MEDS ORDERED: INSULIN GLARGINE 100 UNITS/ML SQ SCH (09:00)
[2019-04-16 09:01] VITALS: O2SAT 98
[2019-04-16 10:14] VITALS: BP 144/65; TEMP 97.3
--- NOTE | 2019-04-17 04:46 | DS ---
Date of Discharge: 04/16/2019 Admitting Diagnoses: 1.Acute chronic obstructive pulmonary disease exacerbation. 2.Lung metastases. 3.Diabetes mellitus type 2 with long-term use of insulin with hyperglycemia. 4.Hypothyroidism. Discharge Diagnoses: 1.Acute respiratory distress with hypoxia. 2.Acute chronic obstructive pulmonary disease exacerbation, improving. 3.Lung metastases. 4.Prostate cancer with diffuse mets to lung, liver, and bone. 5.Diabetes mellitus type 2 with long-term use of insulin with hyperglycemia. 6.Hypothyroidism. Hospital Course: Patient is a 78-year-old male with history of metastatic prostate cancer, comes in with shortness of breath. Patient was found to be having COPD exacerbation. Chest x-ray did not bianca w any acute disease. He was started on prophylactic antibiotics, nebulizers, and IV steroids. Supa nt's blood cultures did not show any growth. CT scan of the chest was done, which did not show any p ulmonary embolism, did shows several metastases from his prostate cancer and possible thickened esoph yoan suggestive of esophagitis. Patient responded well to treatment. His breathing improved. He wa s initially requiring supplemental oxygen, was able to be weaned off to 98% on room air. He did not have an elevated white count. He did well. He was able to ambulate without difficulty. Patient was then cleared for discharge and was sent home in a stable condition. Activity: As tolerated. No strenuous activity. Diet: Diabetic. Followup: Follow up with primary care physician in 2 to 3 days. Return to ER for worsening conditio n. Follow up with specialist for cancer as scheduled. Medications: As per medication reconciliation list. Physical Examination: General: Awake, alert, oriented x3. Elderly male, obese. CV: S1, S2. Respiratory: Moving air well bilaterally. Abdomen: Abdomen is soft, nontender, nondistended. Positive bowel sounds. Extremities: No clubbing, cyanosis. No edema. Neurologic: Nonfocal. SA/MODL Voice ID: [id number] Report ID: [id number]
== END 2019-04-16 09:41 | disposition home or self-care (01) ==
LOC: ER 00:17 → ERHOLD 03:31 → 2ND 04:05
PROVIDERS: ADMIT Internal Medicine; ATTEND Internal Medicine
DX: R06.03 Acute respiratory distress (principal); J44.1 Chronic obstructive pulmonary disease with (acute) exacerbation; R09.02 Hypoxemia; E03.9 Hypothyroidism, unspecified; C78.00 Secondary malignant neoplasm of unspecified lung; C61 Malignant neoplasm of prostate; C78.7 Secondary malignant neoplasm of liver and intrahepatic bile duct; C79.51 Secondary malignant neoplasm of bone; E11.65 Type 2 diabetes mellitus with hyperglycemia; Z88.0 Allergy status to penicillin
CPT/HCPCS: 93005; 87040 ×2; 85025 ×2; 80048 ×2; 36415 ×2; 83735 ×2; 84100; 85610; 82947 ×6; 80076; 84443; 84484; 84439; 83880; 71275; 71045; 94640; 94760 ×5; 96375; 96374; 99285; Q9967; J1644 ×4; J7030; J2930; G0378 ×3; J1815; J7512

== ENCOUNTER 2019-05-29 14:20 | Emergency (ER) | payer OTHER ==
--- OUTSIDE RECORDS SUMMARY | 2019-05-29 14:23 | XMS REPORT ---
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 Assessment [...] with other E11.69 Active specified complication Assessment intermediate current use of insulin Z79.4 Active Assessment Mixed hyperlipidemia E78.2 Active Assessment HTN, goal below 130/80 I10 Active Assessment Parkinson disease G20 Active Assessment Moderate persistent asthma with J45.41 Active exacerbation Assessment Stage IV adenocarcinoma of prostate C61 Active Assessment Lymphadenopathy, mediastinal R59.0 Active Medications Medication Code Code Instructions Start End Status Dosage System Date Date ProAir HFA [facility] [id number] (90 Base) June Active 2 puffs as MCG/ACT 03, needed Inhalation 2019 every 6 hrs Flonase [facility] 12017414625 50 MCG/ACT Active 1 spray in Nasally Once a each day nostril Cyanocobalamin [facility] [address]-96 1000 MCG Orally Active as directed Zyrtec Allergy [facility] 05929909957 10 MG Orally Active 1 tablet Once a day Primidone [facility] 18411820348 50 MG Orally Active 2 tablet BID Insulin Aspart [facility] [address]-90 100 UNIT/ML Active as Subcutaneous directed Levothyroxine [facility] 35564819952 50 MCG Orally Active 1 tablet Sodium Once a day on an empty stomach in the morning Senior Tabs [facility] 65133492083 - Orally Active as directed Fish Oil [facility] 10811299367 1000 MG Orally Active 1 capsule Once a day Carbidopa-Levodop [facility] 44758907431 25-100 MG Active 1 tablet a Orally Once a day Lipitor [facility] 56758423533 20 MG Orally Active 1 tablet Once a day Albuterol Sulfate [facility] 81571673909 108 (90 Base) Active 2 puffs as MCG/ACT needed Inhalation every 6 hrs Advair Diskus [facility] 42106374538 250-50 MCG/DOSE Active 1 puff Inhalation Twice a day Levothyroxine [facility] 48204094338 200 MCG Orally Active 1 tablet Sodium Once a day on an empty stomach in the morning Levemir [facility] 43037423809 100 UNIT/ML Active as Subcutaneous directed Aspir-81 [facility] 51322112214 81 MG Orally Active 1 tablet Once a day Levothyroxine [facility] 29034575695 125 MCG Orally Active 2 tablet Sodium Twice a day Lisinopril [facility] 27335463034 2.5 MG Orally Active 1 tablet Once a day Dulera [facility] 30069732617 200-5 MCG/ACT Yoel Inactive 2 puffs Inhalation , Twice a day 2019 Leuprolide [facility] [address]-37 3.75 MG Active as Acetate Intramuscular directed Bicalutamide [facility] 65918995837 50 MG Orally Active 1 tablet Once a day Metformin HCl [facility] 64414419457 1000 MG Orally Active 1 tablet Twice a day with a meal Results No Known Results Summary Purpose eClinicalWorks Submission
--- OUTSIDE RECORDS SUMMARY | 2019-05-29 14:23 | XMS REPORT ---
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 Active Assessment Stage IV adenocarcinoma of prostate C61 Active Medications Medication Code Code Instructions Start End Status Dosage System Date Date ProAir HFA [facility] 51299992729 108 (90 Base) June Active 2 puffs as MCG/ACT 03, needed Inhalation 2018 every 6 hrs Zyrtec Allergy [facility] 78738225860 10 MG Orally Active 1 tablet Once a day Cyanocobalamin [facility] [address]-16 1000 MCG Orally Active as directed Leuprolide [facility] [address]-60 3.75 MG Active as Acetate Intramuscular directed Lipitor [facility] 11127613317 20 MG Orally Active 1 tablet Once a day Albuterol Sulfate [facility] 60041408596 108 (90 Base) Active 2 puffs as MCG/ACT needed Inhalation every 6 hrs Levothyroxine [facility] 66875902498 50 MCG Orally Active 1 tablet Sodium Once a day on an empty stomach in the morning Flonase [facility] 26935954280 50 MCG/ACT Active 1 spray in Nasally Once a each day nostril Advair Diskus [facility] 11202784680 250-50 MCG/DOSE Active 1 puff Inhalation Twice a day Primidone [facility] 44510052957 50 MG Orally Active 2 tablet BID Carbidopa-Levodop [facility] 43946078840 25-100 MG Active 1 tablet a Orally Once a day Dulera [facility] 10388287337 200-5 MCG/ACT Active 2 puffs Inhalation Twice a day Lisinopril [facility] 47549911474 2.5 MG Orally Active 1 tablet Once a day Metformin HCl [facility] 11046583552 1000 MG Orally Active 1 tablet Twice a day with a meal Fish Oil [facility] 91690978874 1000 MG Orally Active 1 capsule Once a day Senior Tabs [facility] 60186073934 - Orally Active as directed Levemir [facility] 05792878041 100 UNIT/ML Active as Subcutaneous directed Insulin Aspart [facility] [address]-73 100 UNIT/ML Active as Subcutaneous directed Bicalutamide [facility] 02139230985 50 MG Orally Active 1 tablet Once a day Aspir-81 [facility] 59162819884 81 MG Orally Active 1 tablet Once a day Levothyroxine [facility] 66668663176 200 MCG Orally Active 1 tablet Sodium Once a day on an empty stomach in the morning Results No Known Results Summary Purpose eClinicalWorks Submission
--- OUTSIDE RECORDS SUMMARY | 2019-05-29 14:23 | XMS REPORT ---
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 Medications Medication Code Code Instructions Start End Status Dosage System Date Date Fish Oil [facility] 18397684747 1000 MG Orally Active 1 capsule Once a day Primidone ND 66677519132 50 MG Orally Active 2 tablet BID Cyanocobalamin [facility] [address]-59 1000 MCG Orally Active as directed Levothyroxine ND 85826467217 50 MCG Orally Active 1 tablet Sodium Once a day on an empty stomach in the morning Levothyroxine [facility] 10899895467 200 MCG Orally Active 1 tablet Sodium Once a day on an empty stomach in the morning Senior Tabs [facility] 81770043725 - Orally Active as directed Levemir [facility] 99736080678 100 UNIT/ML Active as Subcutaneous directed Zyrtec Allergy [facility] 12580070938 10 MG Orally Active 1 tablet Once a day Lipitor [facility] 83739959346 20 MG Orally Active 1 tablet Once a day Levothyroxine [facility] [address]-82 125 MCG Orally Active 2 tablet Sodium Twice a day Aspir-81 [facility] 01968144219 81 MG Orally Active 1 tablet Once a day Advair Diskus [facility] 34171846516 250-50 MCG/DOSE Active 1 puff Inhalation Twice a day Flonase [facility] 12591886155 50 MCG/ACT Active 1 spray in Nasally Once a each day nostril Insulin Aspart [facility] [address]-70 100 UNIT/ML Active as Subcutaneous directed Albuterol Sulfate [facility] 94623141327 108 (90 Base) Active 2 puffs as MCG/ACT needed Inhalation every 6 hrs Leuprolide [facility] [address]-46 3.75 MG Active as Acetate Intramuscular directed Bicalutamide [facility] 33182221170 50 MG Orally Active 1 tablet Once a day Carbidopa-Levodop [facility] 06644106751 25-100 MG Active 1 tablet a Orally Once a day ProAir HFA [facility] 15987727543 108 (90 Base) June Active 2 puffs as MCG/ACT 03, needed Inhalation 2019 every 6 hrs Lisinopril [facility] 67910693859 2.5 MG Orally Active 1 tablet Once a day Metformin HCl [facility] 76880063037 1000 MG Orally Active 1 tablet Twice a day with a meal Dulera [facility] 33904364690 200-5 MCG/ACT Active 2 puffs Inhalation Twice a day Results No Known Results Summary Purpose eClinicalWorks Submission
--- OUTSIDE RECORDS SUMMARY | 2019-05-29 14:24 | XMS REPORT ---
:1940 Author Organization eClinicalWorks Care Team Providers Name Role Phone Gilson Guido Provider Role Unavailable Allergies No Known Allergies Problems Problem Type Condition Code Onset Dates Condition Status Problem Stage IV adenocarcinoma of prostate C61 Active Problem Allergic rhinitis, unspecified J30.9 Active seasonality, unspecified trigger Problem HTN, goal below 130/80 I10 Active Problem Asthma, unspecified asthma J45.909 Active severity, unspecified whether complicated, unspecified whether persistent Problem Hypothyroidism, unspecified type E03.9 Active Problem Moderate persistent asthma with J45.41 Active exacerbation Problem Parkinson disease G20 Active Problem Chronic obstructive pulmonary J44.9 Active disease, unspecified COPD type Problem Essential tremor G25.0 Active Problem Type 2 diabetes mellitus with other E11.69 Active specified complication Problem penitentiary current use of insulin Z79.4 Active Problem Mixed hyperlipidemia E78.2 Active Medications No Known Medications Results No Known Results Summary Purpose [employer]ott[employer]ose Submission
--- OUTSIDE RECORDS SUMMARY | 2019-05-29 14:24 | XMS REPORT ---
[...] L98.9 Active Assessment Generalized weakness R53.1 Active Assessment Essential tremor G25.0 Active Problem Asthma, unspecified asthma J45.909 Active severity, unspecified whether complicated, unspecified whether persistent Assessment Allergic rhinitis, unspecified J30.9 Active seasonality, unspecified trigger Problem Hypothyroidism, unspecified type E03.9 Active Assessment Asthma, unspecified asthma J45.909 Active severity, unspecified whether complicated, unspecified whether persistent Problem Stage IV adenocarcinoma of prostate C61 Active Problem Allergic rhinitis, unspecified J30.9 Active seasonality, unspecified trigger Problem HTN, goal below 130/80 I10 Active Problem Moderate persistent asthma with J45.41 Active exacerbation Problem Parkinson disease G20 Active Assessment HTN, goal below 130/80 I10 Active Assessment Mixed hyperlipidemia E78.2 Active Problem Chronic obstructive pulmonary J44.9 Active disease, unspecified COPD type Assessment Hypothyroidism, unspecified type E03.9 Active Problem Essential tremor G25.0 Active Problem Type 2 diabetes mellitus with other E11.69 Active specified complication Problem penitentiary current use of insulin Z79.4 Active Problem Mixed hyperlipidemia E78.2 Active Assessment Stage IV adenocarcinoma of prostate C61 Active Assessment Lymphadenopathy, mediastinal R59.0 Active Assessment Type 2 diabetes mellitus with other E11.69 Active specified complication Assessment penitentiary current use of insulin Z79.4 Active Assessment Chronic obstructive pulmonary J44.9 Active disease, unspecified COPD type Assessment Parkinson disease G20 Active Assessment Moderate persistent asthma with J45.41 Active exacerbation Medications Medication Code Code Instructions Start End Status Dosage System Date Date Flonase NDC 65926402230 50 MCG/ACT Active 1 spray in Nasally Once a each day nostril Leuprolide NDC [address]-65 3.75 MG Active as Acetate Intramuscular directed Bicalutamide ND 07655071829 50 MG Orally Active 1 tablet Once a day Benzonatate ND 03022161505 200 MG Orally Apr 21May Active 1 capsule Three times a 2019 Primidone ND 83352811346 50 MG Orally Active 2 tablet BID Albuterol ND 98295981414 108 (90 Base) Active 2 puffs as Sulfate MCG/ACT needed Inhalation every 6 hrs Carbidopa-Levodo [facility] 92933792345 25-100 MG Active 1 tablet pa Orally Once a day Lipitor ND 45951594393 20 MG Orally Active 1 tablet Once a day Advair Diskus ND 62286477178 250-50 MCG/DOSE Inactive 1 puff Inhalation Twice a day Lisinopril [facility] 46408603314 2.5 MG Orally Active 1 tablet Once a day Symbicort ND 19645239506 160-4.5 MCG/ACT Apr 21, Apr 15, Active 2 puffs Inhalation 2019 2020 Twice a day Levothyroxine ND 52489360769 125 MCG Orally Active 2 tablet Sodium Twice a day Cyanocobalamin [facility] [address]-37 1000 MCG Orally Active as directed Senior Tabs [facility] 18624871276 - Orally Active as directed Zyrtec Allergy [facility] 35437230568 10 MG Orally Active 1 tablet Once a day Fish Oil ND 58348661461 1000 MG Orally Active 1 capsule Once a day Insulin Aspart ND 85244120672 100 UNIT/ML Active as Subcutaneous directed Aspir-81 [facility] 02054687290 81 MG Orally Active 1 tablet Once a day Metformin HCl [facility] 99549172202 1000 MG Orally Active 1 tablet Twice a day with a meal ProAir HFA [facility] 39339896773 108 (90 Base) June Active 2 puffs as MCG/ACT , needed Inhalation 2018 every 6 hrs Levemir ND 53214892144 100 UNIT/ML Active as Subcutaneous directed Results No Known Results Summary Purpose eClinicalWorks Submission
[2019-05-29 15:18] LABS: Absolute Lymphocytes (CBC) 1.6 K/uL (0.7-4.9); Basophils % 2.2 % (0-1.3); Hematocrit 33.8 % (39.6-49.0); Lymphocytes % 58.2 % (15.3-44.8); MPV 7.4 fL (7.6-11.3); RBC Red Blood Cell Count 4.07 M/uL (4.33-5.43)
[2019-05-29 15:24] LABS: Protime INR 1.06
[2019-05-29 15:32] LABS: BUN Blood Urea Nitrogen 11 mg/dL (7-18); Bicarbonate 27 mmol/L (21-32); Glucose Level 160 mg/dL (74-106); Potassium 4.4 mmol/L (3.5-5.1); Sodium Level 133 mmol/L (136-145)
--- NOTE | 2019-05-29 15:54 | RAD REPORT ---
EXAM DESCRIPTION: RAD - Chest Single View - 05/29/2019 3:22 pm CLINICAL HISTORY: hemoptysis;Cough COMPARISON: April 15, 2019 portable TECHNIQUE: AP portable chest image was obtained 05/29/2019 3:22 pm . FINDINGS: Slightly underinflated. No peripheral mass or consolidation. Chronic interstitial pattern is similar to comparison. Heart size is normal. Patchy opacification medial right heart border has no t changed. Right costophrenic angle blunting has not changed. No left-sided pleural effusion. No acut e bony abnormality seen. No acute aortic findings suspected. IMPRESSION: No acute cardiopulmonary process. Chest findings are similar to comparison.
--- NOTE | 2019-05-29 16:16 | RAD REPORT ---
EXAM DESCRIPTION: CT - Chest For Pe Angio - 05/29/2019 3:19 pm CLINICAL HISTORY: hemoptysis, metastatic prostate cancer, known to lung COMPARISON: Chest For Pe Angio dated 04/15/2019; Chest Single View dated 05/29/2019 TECHNIQUE: Dynamically enhanced 3 mm thick images of the chest were obtained during administration o f approximately 150mL Isovue 370 IV contrast. Coronal and oblique MIP reconstruction images were gene rated and reviewed. Exam utilizes a protocol to evaluate the pulmonary arterial tree. All CT scans are performed using dose optimization technique as appropriate and may include automated exposure control or mA/KV adjustment according to patient size. FINDINGS: No pulmonary emboli are identified. The aorta as imaged shows no acute or suspicious finding. No pericardial thickening or effusion. Left lung field is clear. No left-sided pleural effusion. Right infrahilar lobulated mass measure sli ghtly smaller than the April 15 imaging. The posterior right perihilar lobulated mass component als o diminished in size. Patchy airspace opacification present in the right upper lobe adjacent to the m ajor fissure is new from prior imaging. No right-sided pleural effusion. There is no pneumothorax. The malignant mediastinal lymphadenopathy pattern seen on the April study is still present. This i s not substantially different. No chest wall masses or abnormal axillary lymphadenopathy. Limited upper abdomen imaging shows multiple metastatic lesions within the partially imaged liver. Th nisa lesions are not grossly different but not fully assessed on this study. IMPRESSION: No pulmonary emboli identified. Patchy airspace opacification in the right perihilar region. In the acute clinical setting this is montero spicious for minimal pneumonia. Given the underlying malignant findings this right upper lobe finding is potentiallyextension of tee gnancy. Malignant mediastinal and hilar lymphadenopathy are not substantially different from February imaging . The right infrahilar presumed malignant mass has decreased in size. Multiple liver metastatic lesions not grossly different. These are incompletely assessed.
[2019-05-29 16:23] LABS: Blood Morphology Comment NOTED (NOT SEEN); Platelet Estimate ADEQ; Poikilocytosis 1+
--- NOTE | 2019-05-29 16:47 | EDPHYS ---
Physician Documentation [facility] Name: John Dave Age: 78 yrs Sex: Male : 1940 Arrival Date: 05/29/2019 Time: 14:23 Bed 27 Private MD: ED Physician Scotty Mccain HPI: 05/28 15:46 This 78 yrs old Male presents to ER via Wheelchair with complaints of rn Coughing up blood. 15:46 The patient has shortness of breath with light activity. Onset: The symptoms/episode rn began/occurred at an unknown time. Duration: The symptoms are intermittent. The patient's shortness of breath is aggravated by exertion, light activity, is alleviated by rest. Severity of symptoms: At their worst the symptoms were mild in the emergency department the symptoms are unchanged. The patient has not experienced similar symptoms in the past. 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 Reports didn't know if coughing up blood is normal for his lung cancer or something else going on. . Historical: - Allergies: 14:35 Erythromycin; ca1 14:35 Levofloxacin; ca1 14:35 Augmentin; ca1 14:35 PC23; ca1 - PMHx: 14:35 Diabetes - IDDM; familial tremors; Hypothyroidism; plural effusion; Pneumonia; Prostate ca1 Cancer; thoracentisis; - PSHx: 14:35 Cholecystectomy; prostate removal; shoulder; ca1 - Immunization history:: Adult Immunizations up to date, Pneumococcal vaccine is up to date, Flu vaccine is up to date. - Social history:: Smoking status: Patient/guardian denies using tobacco, the patient reports quitting approximately 25 years ago. - Family history:: not pertinent. - Hospitalizations: : No recent hospitalization is reported. ROS: 15:46 Constitutional: Negative for fever, chills, and weight loss, Eyes: Negative for injury, rn pain, redness, and discharge, Neck: Negative for injury, pain, and swelling, Cardiovascular: Negative for chest pain, palpitations, and edema, Respiratory: + sob Abdomen/GI: Negative for abdominal pain, nausea, vomiting, diarrhea, and constipation, MS/Extremity: Negative for injury and deformity, Skin: Negative for injury, rash, and discoloration, Neuro: Negative for headache, weakness, numbness, tingling, and seizure. Exam: 15:46 Constitutional: This is a well developed, well nourished patient who is awake, alert, rn and in no acute distress. Head/Face: Normocephalic, atraumatic. ENT: MMM, no stridor or oral trauma. Cardiovascular: Regular rate and rhythm. No pulse deficits. Respiratory: Diminished breath sounds bilateral bases, faint exp wheezing. No increased work of breathing, no retractions or nasal flaring. Abdomen/GI: soft, non-tender MS/ Extremity: Pulses equal, no cyanosis. Neurovascular intact. Full, normal range of motion. Equal circumference. Neuro: Awake and alert, GCS 15, oriented to person, place, time, and situation. Vital Signs: 14:31 BP 137 / 66; Pulse 92; Resp 20; Temp 98.5(O); Pulse Ox 98% on R/A; Weight 105.23 kg ca1 (R); Height 6 ft. (182.88 cm) (R); Pain 0/10; 15:56 BP 113 / 51; Pulse 79; Resp 18; Pulse Ox 96% on R/A; ll1 16:16 BP 113 / 89; Pulse 80; Resp 18; Pulse Ox 97% on R/A; ll1 17:00 BP 107 / 60; Pulse 76; Resp 18; Temp 98.5; Pulse Ox 99% ; Pain 0/10; ll1 14:31 Body Mass Index 31.46 (105.23 kg, 182.88 cm) ca1 MDM: 14:51 Patient medically screened. rn 16:42 Differential diagnosis: pneumonia, Pulmonary Embolism progression of cancer. Data rn reviewed: vital signs, nurses notes, lab test result(s), radiologic studies, CT scan, plain films, and as a result, I will discharge patient. Counseling: I had a detailed discussion with the patient and/or guardian regarding: the historical points, exam findings, and any diagnostic results supporting the discharge/admit diagnosis, lab results, radiology results, the need for outpatient follow up, to return to the emergency department if symptoms worsen or persist or if there are any questions or concerns that arise at home. 16:43 ED course: Pt with known lung metastases but possible early superimposed pneumonia, rn will dc home with doxycycline given his drug allergies and has taken doxy without problem before. Recommended f/u with his cancer doctor and return precautions given. . 05/28 15:03 Order name: CBC with Diff rn 05/28 15:03 Order name: Basic Metabolic Panel rn 05/28 15:03 Order name: Protime (+inr) rn 05/28 15:03 Order name: Ptt, Activated rn 05/28 15:27 Order name: Protime (+INR); Complete Time: 16:25 EDMS 05/28 15:27 Order name: PTT, Activated Partial Thromb; Complete Time: 16:25 EDMS 05/28 15:03 Order name: IV Start; Complete Time: 15:04 rn 05/28 15:03 Order name: XRAY Chest (1 view) rn 05/28 15:03 Order name: CT Chest For PE Angio rn 05/28 15:31 Order name: CBC with Automated Diff; Complete Time: 16:42 EDMS 05/28 15:33 Order name: Basic Metabolic Panel; Complete Time: 16:25 EDMS 05/28 16:24 Order name: Manual Differential; Complete Time: 16:42 EDMS Administered Medications: 17:04 Drug: Doxycycline 100 mg Route: PO; ll1 17:05 Follow up: Response: No adverse reaction; RASS: Alert and Calm (0) ll1 Disposition: 05/29/19 16:45 Discharged to Home. Impression: Hemoptysis, Pneumonia. - Condition is Stable. - Discharge Instructions: Hemoptysis, Community-Acquired Pneumonia, Adult, Cough, Adult. - Prescriptions for Doxycycline Hyclate 100 mg Oral Tablet - take 1 tablet by ORAL route every 12 hours for 10 days; 20 tablet. - Medication Reconciliation Form, Thank You Letter, Antibiotic Education, Prescription Opioid Use form. - Follow up: Private Physician; When: As needed; Reason: Recheck today's complaints, Re-evaluation by your physician. - Problem is new. - Symptoms have improved. Signatures: Dispatcher [employer] EDMS Scotty Mccain MD MD rn Acob, JOSE ANTONIO Fregoso RN ca1 Sandra Salazar RN RN ll1 Corrections: (The following items were deleted from the chart) 17:11 16:45 05/29/2019 16:45 Discharged to Home. Impression: Hemoptysis; Pneumonia. Condition ll1 is Stable. Forms are Medication Reconciliation Form, Thank You Letter, Antibiotic Education, Prescription Opioid Use. Follow up: Private Physician; When: As needed; Reason: Recheck today's complaints, Re-evaluation by your physician. Problem is new. Symptoms have improved. rn
--- NOTE | 2019-05-29 16:47 | ER ---
Nurse's Notes [facility] Name: John Dave Age: 78 yrs Sex: Male : 1940 Arrival Date: 05/29/2019 Time: 14:23 Bed 27 Private MD: Diagnosis: Hemoptysis;Pneumonia Presentation: 05/28 14:31 Chief complaint: Patient states: coughing up blood since Wednesday last week. SOB on ca1 exertion. Pt reports to have prostate cancer that has metastasized to R lower lobe of lung. Pt is on chemotherapy, last session was Wednesday of last week. Denies fever. Coronavirus screen: Patient reports a subjective fever or greater than 100.4F, or cough, or shortness of breath, or difficulty breathing. Patient denies travel on a cruise ship or to a country the [facility] currently lists as an affected area. Patient denies contact with known and/or suspected case of COVID-19. Ebola Screen: Patient negative for fever greater than or equal to 101.5 degrees Fahrenheit, and additional compatible Ebola Virus Disease symptoms Patient denies exposure to infectious person. Patient denies travel to an Ebola-affected area in the 21 days before illness onset. No symptoms or risks identified at this time. Risk Assessment: Do you want to hurt yourself or someone else? Patient reports no desire to harm self or others. Onset of symptoms was May 29, 2019. 14:31 Method Of Arrival: Wheelchair ca1 14:31 Acuity: LUPILLO 3 ca1 14:50 Initial Sepsis Screen: Does the patient meet any 2 criteria? No. Patient's initial ll1 sepsis screen is negative. Does the patient have a suspected source of infection? Yes: Productive cough/pneumonia. Triage Assessment: 14:50 General: Appears in no apparent distress. Behavior is calm, cooperative. ll1 15:55 Respiratory: Reports shortness of breath cough that is productive, blood in sputum. ll1 17:08 Respiratory: the patient has mild shortness of breath. ll1 17:08 Respiratory: Onset: The symptoms/episode began/occurred yesterday. ll1 Historical: - Allergies: 14:35 Erythromycin; ca1 14:35 Levofloxacin; ca1 14:35 Augmentin; ca1 14:35 PC23; ca1 - PMHx: 14:35 Diabetes - IDDM; familial tremors; Hypothyroidism; plural effusion; Pneumonia; Prostate ca1 Cancer; thoracentisis; - PSHx: 14:35 Cholecystectomy; prostate removal; shoulder; ca1 - Immunization history:: Adult Immunizations up to date, Pneumococcal vaccine is up to date, Flu vaccine is up to date. - Social history:: Smoking status: Patient/guardian denies using tobacco, the patient reports quitting approximately 25 years ago. - Family history:: not pertinent. - Hospitalizations: : No recent hospitalization is reported. Screenin:47 Abuse screen: Denies threats or abuse. Nutritional screening: No deficits noted. ll1 Tuberculosis screening: No symptoms or risk factors identified. Fall Risk IV access (20 points). Ambulatory Aid- Crutches/Cane/Walker (15 pts). Gait- Weak (10 pts.). Total Castro Fall Scale indicates High Risk Score (45 or more points). Fall prevention measures have been instituted. Side Rails Up X 2 Placed Close to Nursing Station Frequent Obs/Assessments Occuring As available patient and family educated on Fall Prevention Program and Strategies. Assessment: 14:49 Pain: Denies pain. Cardiovascular: No deficits noted. Cardiovascular: Rhythm is ll1 regular. Respiratory: Airway is patent Trachea midline Respiratory effort is even, unlabored, Respiratory pattern is regular, symmetrical, Sputum is blood streaked. GI: No deficits noted. 16:14 Reassessment: Patient appears in no apparent distress at this time. No changes from ll1 previously documented assessment. Patient and/or family updated on plan of care and expected duration. Pain level reassessed. Patient is alert, oriented x 3, equal unlabored respirations, skin warm/dry/pink. 17:04 Reassessment: Patient appears in no apparent distress at this time. No changes from ll1 previously documented assessment. Patient and/or family updated on plan of care and expected duration. Pain level reassessed. Patient is alert, oriented x 3, equal unlabored respirations, skin warm/dry/pink. 17:07 Respiratory: Breath sounds are clear bilaterally. ll1 Vital Signs: 14:31 BP 137 / 66; Pulse 92; Resp 20; Temp 98.5(O); Pulse Ox 98% on R/A; Weight 105.23 kg ca1 (R); Height 6 ft. (182.88 cm) (R); Pain 0/10; 15:56 BP 113 / 51; Pulse 79; Resp 18; Pulse Ox 96% on R/A; ll1 16:16 BP 113 / 89; Pulse 80; Resp 18; Pulse Ox 97% on R/A; ll1 17:00 BP 107 / 60; Pulse 76; Resp 18; Temp 98.5; Pulse Ox 99% ; Pain 0/10; ll1 14:31 Body Mass Index 31.46 (105.23 kg, 182.88 cm) ca1 ED Course: 14:23 Patient arrived in ED. mr 14:25 Sandra Salazar, RN is Primary Nurse. ll1 14:33 Triage completed. ca1 14:35 Arm band placed on right wrist. ca1 14:40 Inserted saline lock: 20 gauge in right antecubital area, using aseptic technique. ll1 Blood collected. 14:50 Patient has correct armband on for positive identification. Bed in low position. Call ll1 light in reach. Side rails up X 1. Pulse ox on. NIBP on. Warm blanket given. Pillow given. 14:51 Scotty Mccain MD is Attending Physician. rn 15:42 XRAY Chest (1 view) In Process Unspecified. EDMS 17:00 No provider procedures requiring assistance completed. IV discontinued, intact, ll1 bleeding controlled, No redness/swelling at site. Pressure dressing applied. Administered Medications: 17:04 Drug: Doxycycline 100 mg Route: PO; ll1 17:05 Follow up: Response: No adverse reaction; RASS: Alert and Calm (0) ll1 Outcome: 16:45 Discharge ordered by . rn 17:09 Discharged to home ambulatory. ll1 17:09 Condition: stable 17:09 Discharge instructions given to patient, Instructed on discharge instructions, follow up and referral plans. medication usage, Demonstrated understanding of instructions, follow-up care, medications, Prescriptions given X 1. 17:11 Patient left the ED. ll1 Signatures: Dispatcher [employer] [facility] Charis Escamilla mr Scotty Mccain MD MD rn Acob, JOSE ANTONIO Fregoso RN ca1 Sandra Salazar RN RN ll1
[2019-05-29] MEDS ORDERED: DOXYCYCLINE 100 MG CAP PO ONE (16:53)
[2019-05-29 17:27] VITALS: TEMP 98.5
[2019-05-29 17:31] VITALS: BP 107/60; O2SAT 99
== END 2019-05-29 17:11 | disposition home or self-care (01) ==
LOC: ER 14:20
DX: J18.9 Pneumonia, unspecified organism (principal); C61 Malignant neoplasm of prostate; C78.00 Secondary malignant neoplasm of unspecified lung; C78.7 Secondary malignant neoplasm of liver and intrahepatic bile duct; C77.9 Secondary and unspecified malignant neoplasm of lymph node, unspecified; Z88.1 Allergy status to other antibiotic agents; Z88.8 Allergy status to other drugs, medicaments and biological substances
CPT/HCPCS: 85025; 80048; 36415; 85610; 85730; 71275; 71045; 99284; Q9967

== ENCOUNTER 2019-09-04 01:51 | Emergency (ER) | payer OTHER ==
--- OUTSIDE RECORDS SUMMARY | 2019-09-04 01:54 | XMS REPORT | Continuity of Care Document ---
:1940 Author Organization [facility] t Address [facility] [place] [address] Care Team Providers Name Role Phone Unavailable Unavailable Unavailable Problems Condition Condition Condition Status Onset Resolution Last Treating Co mments Source Name Details Category Date Date Treatment Clinician Date Essential Essential Problem Active [facility] tremor tremor [facility] ent Clinics Allergic Allergic Problem [facility], [facility]initis, Luke s - unspecifie unspecifie Me moria d d l seasonalit seasonalit Ou tpati y, y, ent unspecifie unspecifie Cl inics d trigger d trigger Asthma, Asthma, Diagnosis Active [facility] unspecifie unspecifie [place] kes - d asthma d asthma Memori a severity, severity, l unspecifie unspecifie Ou tpati d whether d whether ent complicate complicate Cl inics d, d, unspecifie unspecifie d whether d whether persistent persistent HTN, goal HTN, goal Diagnosis Active [facility] below below [facility] - 130/80 130/80 [facility] Stage IV Stage IV Diagnosis Active [facility] adenocarci adenocarci [place] kes - noma of noma of Memoria prostate prostate l [facility] Mixed Mixed Problem Active [facility] hyperlipid hyperlipid [place] kes - emia emia [facility]ics senior care senior care Diagnosis Active [facility] current current [facility] - use of use of Memoria insulin insulin l [facility]ics Hypothyroi Hypothyroi Diagnosis Active [facility] dism, dism, [facility] - unspecifie unspecifie Me moria d type d type l [facility] ent Clinics Type 2 Type [address] [facility] diabetes diabetes [facility] - mellitus mellitus Memori a with other with other l specified specified Outp ati complicati complicati en t on on Clinics Parkinson Parkinson Diagnosis Active [facility] disease disease [facility] Clinics Moderate Moderate Diagnosis Active [facility] persistent persistent [place] kes - asthma asthma [facility] with with l exacerbati exacerbati Ou tpati on on ent Clinics Chronic Chronic Diagnosis Active [facility] obstructiv obstructiv [place] kes - e e Memoria pulmonary pulmonary l disease, disease, Outpat i unspecifie unspecifie en t d COPD d COPD Clinics type type Noncomplia Noncomplia Diagnosis Active [facility] nce nce [facility] - w/medicati w/medicati Me moria on on l treatment treatment Outp ati due to due to ent intermit intermit Clinic s use of use of medication medication History of History of Diagnosis Active [facility] fall fall [facility] Clinics Skin Skin Diagnosis Active [facility] lesions lesions [facility] Clinics Generalize Generalize Diagnosis Active [facility] d weakness d weakness [place] kes - Memoria l [facility] ent Clinics Lymphadeno Lymphadeno Diagnosis Active [facility] ihsan, ihsan, [facility] - mediastina mediastina Me moria l l l [facility] ent Clinics Allergies, Adverse Reactions, Alerts Allergy Allergy Status Severity Reaction(s) Onset Inactive Treating Comm ents Source Name Type Date Date Clinician Erythrom Adverse Active rash [facility] ycin Reaction [facility] Clinics Medications Ordered Filled Start Stop Current Ordering Indication Dosage Frequency Signature Comments Components Source Medication Medication Date Date Medication? Clinician (SIG) Name Name Symbicort Symbicort 2019-0 2020- No Gilson [address] [facility] 2-14 02-08 Guido [facility] - 00:00: 00:00 Memoria 00 :00 l [facility] ent Clinics Advair Advair Yes [facility] 1 puff [facility] Diskus Diskus 6-24 Guido [facility] - 00:[facility]: Memoria 00 [employer] [facility] [employer] [facility] ent Clinics ProAir HFA ProAir HFA Yes Gilson [address] [facility] 4-03 Guido needed [facility] - 00:00: Memoria 00 l [facility] ent Clinics Senior Tabs Senior Tabs Yes Gilson as [facility] Guido directed L[facility] ent Clinics Flonase Flonase Yes Gilson [address] [facility] Guido each [facility] - nostril Memoria l [facility] ent Clin[facility] Primidone Primidone Yes Gilson [address] [facility] Guido [facility] Outpati ent Clinics Leuprolide Leuprolide Yes Gilson as [facility] Acetate Acetate Guido directed Luke s - [facility] Lisinopril Lisinopril Yes Gilson [address] [facility] Guido [facility] Zyrtec Zyrtec Yes [facility] 1 tablet [facility] Allergy Allergy Guido [facility] Albuterol Albuterol Yes Gilson [address] [facility] Sulfate Sulfate Guido needed [facility] Bicalutamid Bicalutamid Yes Gilson [address] [facility] e e Guido [facility] Carbidopa-L Carbidopa-L Yes Gilson [address] [facility] evodopa evodopa Guido [facility] Levemir Levemir Yes Gilson as [facility] Guido directed [facility] Metformin Metformin Yes Gilson [address] [facility] HCl HCl Guido with a [facility] - meal [facility] Cyanocobala Cyanocobala Yes Gilson as [facility] min min Guido directed [facility]ics Fish Oil Fish Oil Yes Gilson [address] [facility] [address] Guido [facility] Lipitor Lipitor Yes Gilson [address] [facility] Guido [facility]ics Aspir-81 Aspir-81 Yes Gilson [address] Guido [facility]ics Levothyroxi Levothyroxi Yes Gilson [address] [facility] ne Sodium ne Sodium Guido Luke [facility] - [facility] Insulin Insulin Yes Gilson as [facility] Aspart Aspart Guido directed [facility] Procedures This patient has no known procedures. Encounters Start End Encounter Admission Attending Care Care Encounter Source Date/Time Date/Time Type Type Clinicians Facility Department ID 2019-06-16 2019-06-16 Outpatient Martina Campoverde [id number] [facility] 10:00:00 10:00:00 t Nadanu [facility] 2019-04-26 2019-04-26 Outpatient Martina Campoverde [id number] [facility] 16:35:00 16:35:00 t [employer] [place] [address] - [address] [facility] Medicine l Medicine Outpati ent Clinics 2019-04-21 2019-04-21 [place] [facility] [id number] [address] 09:15:00 09:15:00 [place] [employer] - [address] [facility] Medicine l Medicine Outpati ent Clinics 2019-03-28 2019-03-28 [place] [id number] 16:00:00 16:00:00 t [place] [address] - [address] [facility] Medicine l Medicine Outpati ent Clinics 2019-02-14 2019-02-14 [place] [facility] [id number] [address] 08:00:00 08:00:00 t [place] - [address] [facility] l Medicine Outpati ent Clinics 2018-12-07 2018-12-07 [place] [id number] [address] 08:00:00 08:00:00 t [place] [employer] - [address] [facility] Medicine Outpati ent Clinics 2018-11-03 2018-11-03 [place] [id number] 08:00:00 08:00:00 t [place] - [address] [facility] Medicine l Medicine Outpati ent Clinics 2018-08-29 2018-08-29 [place] [id number] 09:40:00 09:40:00 t [place] [employer] - [address] [facility] Medicine Medicine Outpati ent Clinics 2018-07-05 2018-07-05 [facility] [id number] 11:44:00 11:44:00 t [place] [address] - [address] [facility] Medicine l Medicine Outpati ent Clinics 2018-07-05 2018-07-05 [facility] [id number] 08:30:00 08:30:00 t [place] [address] [facility] l Medicine Outpati ent Clinics 2018-06-08 2018-06-08 [place] [place] [id number] 09:45:00 09:45:00 t [place] [address] [facility] l Medicine Outpati ent Clinics 2018-04-05 2018-04-05 [facility] [id number] [facility] 13:30:00 13:30:00 t Nadanu [facility] Medicine Medicine Outpati ent Clinics Results This patient has no known results.
--- OUTSIDE RECORDS SUMMARY | 2019-09-04 01:54 | XMS REPORT ---
:1940 Author Organization [employer] Care Team Providers Name Role Phone GuidoGilson Provider Role Unavailable Allergies, Adverse Reactions, Alerts Substance Reaction Event Type Erythromycin rash Drug Allergy Problems Problem Type Condition Code Onset Dates Condition Statu s Assessment Noncompliance w/medication Z91.14 A ctive treatment due to intermit use of medication Assessment History of fall Z91.81 Active Assessment Skin lesions L98.9 Active Assessment Generalized weakness R53.1 Active Assessment Essential tremor G25.0 Active Problem Asthma, unspecified asthma J45.909 A ctive severity, unspecified whether complicated, unspecified whether persistent Assessment Allergic rhinitis, unspecified J30.9 Active seasonality, unspecified trigger Problem Hypothyroidism, unspecified type E03.9 Active Assessment Asthma, unspecified asthma J45.909 A ctive severity, unspecified whether complicated, unspecified whether persistent Problem Stage IV adenocarcinoma of prostate C61 Active Problem Allergic rhinitis, unspecified J30.9 Active seasonality, unspecified trigger Problem HTN, goal below 130/80 I10 Activ e Problem Moderate persistent asthma with J45.41 Active exacerbation Problem Parkinson disease G20 Active Assessment HTN, goal below 130/80 I10 Activ e Assessment Mixed hyperlipidemia E78.2 Active Problem Chronic obstructive pulmonary J44.9 Active disease, unspecified COPD type Assessment Hypothyroidism, unspecified type E03.9 Active Problem Essential tremor G25.0 Active Problem Type 2 diabetes mellitus with other E11.69 Active specified complication Problem terminologist current use of insulin Z79.4 Active Problem Mixed hyperlipidemia E78.2 Active Assessment Stage IV adenocarcinoma of prostate C61 Active Assessment Lymphadenopathy, mediastinal R59.0 Active Assessment Type 2 diabetes mellitus with other E11.69 Active specified complication Assessment terminologist current use of insulin Z79.4 Active Assessment Chronic obstructive pulmonary J44.9 Active disease, unspecified COPD type Assessment Parkinson disease G20 Active Assessment Moderate persistent asthma with J45.41 Active exacerbation Medications Medication Code Code Instructions Start End Status Dosage System Date Date Advair Diskus [facility] 46244865408 250-50 MCG/DOSE Inacti ve 1 puff Inhalation Twice a day Albuterol Sulfate [facility] 88585380000 108 (90 Base) Acti ve 2 puffs as MCG/ACT needed Inhalation every 6 hrs Levothyroxine [facility] 19619779087 125 MCG Orally Active 2 tablet Sodium Twice a day Cyanocobalamin [facility] [address]-07 1000 MCG Orally Act [place] as directed Primidone ND 76119741658 50 MG Orally Active 2 tab let BID Flonase [facility] 81994876294 50 MCG/ACT Active 1 spray i n Nasally Once a each day nostril Carbidopa-Levodop [facility] 82256160262 25-100 MG Active 1 tablet a Orally Once a day Leuprolide [facility] [address]-23 3.75 MG Active as Acetate Intramuscular directed Aspir-81 [facility] 02961563285 81 MG Orally Active 1 tabl et Once a day Lisinopril ND 28930729731 2.5 MG Orally Active 1 t ablet Once a day Lipitor [facility] 78102810451 20 MG Orally Active 1 table t Once a day Symbicort [facility] 90547783703 160-4.5 MCG/ACT Active 2 puffs Inhalation Twice a day Bicalutamide ND 06137633390 50 MG Orally Active 1 tablet Once a day Insulin Aspart [facility] 16901837404 100 UNIT/ML Active a s Subcutaneous directed Levemir ND 56496733049 100 UNIT/ML Active as Subcutaneous directed Zyrtec Allergy [facility] 06504030482 10 MG Orally Active 1 tablet Once a day Metformin HCl [facility] 76499661512 1000 MG Orally Active 1 tablet Twice a day with a meal ProAir HFA [facility] 19705999951 108 (90 Base) June Active 2 p uffs as MCG/ACT 03, needed Inhalation 2019 every 6 hrs Senior Tabs [facility] 98394858456 - Orally Active as directed Fish Oil ND 48790277372 1000 MG Orally Active 1 ca psule Once a day Results No Known Results Summary Purpose [employer] Submission
[2019-09-04] MEDS ORDERED: FLEET ENEMA ADULT PR ONE (02:27)
[2019-09-04 03:12] LABS: Absolute Lymphocytes (CBC) 1.6 K/uL (0.7-4.9); Basophils % 0.8 % (0-1.3); Hematocrit 35.6 % (39.6-49.0); Lymphocytes % 17.4 % (15.3-44.8); MPV 7.5 fL (7.6-11.3); RBC Red Blood Cell Count 4.31 M/uL (4.33-5.43)
[2019-09-04 03:49] LABS: Albumin 3.2 g/dL (3.4-5.0); Alkaline Phosphatase 343 U/L (45-117); BUN Blood Urea Nitrogen 13 mg/dL (7-18); Bicarbonate 21 mmol/L (21-32); Bilirubin Direct 0.2 mg/dL (0-0.2); Bilirubin Total 0.7 mg/dL (0.2-1.0); Glucose Level 142 mg/dL (74-106); Lipase 66 U/L (73-393); Potassium 4.2 mmol/L (3.5-5.1); Protein, Total 7.1 g/dL (6.4-8.2); Sodium Level 130 mmol/L (136-145)
[2019-09-04 03:51] LABS: ALT/SGPT 684 U/L (12-78); AST/SGOT 381 U/L (15-37)
--- NOTE | 2019-09-04 04:08 | EDPHYS ---
Physician Documentation [facility] Name: John Dave Age: 79 yrs Sex: Male : 1940 Arrival Date: 09/04/2019 Time: 01:52 Bed 5 Private MD: ED Physician Pilar Luevano HPI: 09/03 02:56 This 79 yrs old Male presents to ER via Ambulatory with complaints of ma2 Constipation. 02:56 Onset: The symptoms/episode began/occurred gradually, 3 day(s) ago. Associated signs ma2 and symptoms: Pertinent positives: constipation, Pertinent negatives: anorexia, constipation, fever, testicular pain, vomiting. Severity of pain: At its worst the pain was mild in the emergency department the pain is unchanged. The patient has experienced similar episodes in the past. last bm 3 days ago . Historical: - Allergies: 01:54 Augmentin; sg 01:54 Erythromycin; sg 01:54 Levofloxacin; sg 01:54 PC23; sg - Home Meds: 02:27 metformin 1,000 mg Oral tab 1 tab 2 times per day [Active]; levothyroxine 125 mcg tab 2 jd3 tabs once daily [Active]; aspirin 81 mg Oral chew 1 tab once daily [Active]; primidone 50 mg Oral tab 1 tabs twice a day [Active]; atorvastatin 20 mg oral tab 1 tab once daily [Active]; B 12 500 mg daily [Active]; Vit D3 400 BID [Active]; Multiple Vitamins Oral tab daily [Active]; Fish Oil 1,000 mg oral cap daily [Active]; cetirizine 10 mg Oral tab 1 tab once daily [Active]; fluticasone inhalation 2 puffs 2 times per day [Active]; lisinopril 2.5 mg Oral tab 1 tab once daily [Active]; Insulin: Novolog Sub-Q [Active]; insulin levomier [Active]; bicalutamide 50 mg Oral tab 1 tab once daily [Active]; - PMHx: 01:54 Diabetes - IDDM; familial tremors; Hypothyroidism; plural effusion; Pneumonia; Prostate sg Cancer; thoracentisis; 02:27 chemo; jd3 - PSHx: 01:54 Cholecystectomy; prostate removal; sg 02:27 right shoulder; radiation 2006; jd3 - Immunization history:: Adult Immunizations up to date. - Social history:: Smoking status: Patient denies any tobacco usage or history of. Patient/guardian denies using alcohol, street drugs, The patient lives with family. - Family history:: not pertinent. ROS: 02:56 Constitutional: Negative for fever, chills, and weight loss. ma2 02:56 All other systems are negative. Exam: 02:56 Constitutional: This is a well developed, well nourished patient who is awake, alert, ma2 and in no acute distress. Neck: Trachea midline, no thyromegaly or masses palpated, and no cervical lymphadenopathy. Supple, full range of motion without nuchal rigidity, or vertebral point tenderness. No Meningismus. Chest/axilla: Normal chest wall appearance and motion. Nontender with no deformity. No lesions are appreciated. Cardiovascular: Regular rate and rhythm with a normal S1 and S2. No gallops, murmurs, or rubs. Normal PMI, no JVD. No pulse deficits. Respiratory: Lungs have equal breath sounds bilaterally, clear to auscultation and percussion. No rales, rhonchi or wheezes noted. No increased work of breathing, no retractions or nasal flaring. Abdomen/GI: Soft, non-tender, with normal bowel sounds. No distension or tympany. No guarding or rebound. No evidence of tenderness throughout. MS/ Extremity: Pulses equal, no cyanosis. Neurovascular intact. Full, normal range of motion. Neuro: Awake and alert, GCS 15, oriented to person, place, time, and situation. Cranial nerves II-XII grossly intact. Motor strength 5/5 in all extremities. Sensory grossly intact. Cerebellar exam normal. Normal gait. Vital Signs: 02:10 BP 144 / 68; Pulse 87; Resp 19 S; Temp 98.4(O); Pulse Ox 97% on R/A; Weight 103.42 kg jd3 (R); Height 6 ft. 0 in. (182.88 cm) (R); Pain 4/10; 03:46 BP 123 / 54; Pulse 80; Resp 20 S; Pulse Ox 98% on R/A; jd3 02:10 Body Mass Index 30.92 (103.42 kg, 182.88 cm) jd3 MDM: 01:58 Patient medically screened. ma2 02:56 Differential diagnosis: gastroesophageal reflux disease, Irritable bowel syndrome, ma2 constipation. Data reviewed: vital signs, nurses notes. Counseling: I had a detailed discussion with the patient and/or guardian regarding: the historical points, exam findings, and any diagnostic results supporting the discharge/admit diagnosis, the presence of at least one elevated blood pressure reading (>120/80) during this emergency department visit, the need for outpatient follow up. Response to treatment: the patient's symptoms have resolved after treatment, after enema he had bm and all symptoms resolved . 04:07 ED course: liver enzymes elevated d/t liver [facility]. [facility] 09/03 02:12 Order name: Basic Metabolic Panel; Complete Time: 04:07 [facility] 09/03 02:12 Order name: CBC with Diff; Complete Time: 03:50 [facility] 09/03 02:12 Order name: Hepatic Function; Complete Time: 04:07 [facility] 09/03 02:12 Order name: Lipase; Complete Time: 04:07 [facility] 09/03 02:12 Order name: IV Saline Lock; Complete Time: 02:32 [facility] 09/03 02:12 Order name: Labs collected and sent; Complete Time: 02:32 [place] Administered Medications: 02:34 Drug: Fleet Enema 133 ml Route: [place]; jd3 03:09 Follow up: Response: No adverse reaction jd3 Disposition: 09/04/19 04:08 Discharged to Home. Impression: Constipation, unspecified. - Condition is Stable. - Discharge Instructions: Constipation, Adult. - Prescriptions for Colace 100 mg Oral Tablet - take 1 tablet by ORAL route every 12 hours; 14 tablet. Fleet Enema - take 1 Cartridge by RECTAL route 1-2 times daily for 1 day; 2 Cartridge. - Medication Reconciliation Form, Thank You Letter, Antibiotic Education, Prescription Opioid Use form. - Follow up: Private Physician; When: Tomorrow; Reason: If symptoms return. Signatures: Dispatcher [employer] Joe Torres RN RN sg Davies, Jonathon, RN RN jd3 Alzahri, Mohammad, MD MD ma2 Corrections: (The following items were deleted from the chart) 02:27 01:54 PSHx: shoulder; sg jd3 03:12 02:13 Abdomen Pelvis W Con+CT.RAD.BRZ ordered. EDPA EDMS 04:28 04:08 09/04/2019 04:08 Discharged to Home. Impression: Constipation, unspecified. jd3 Condition is Stable. Discharge Instructions: Constipation, Adult. Prescriptions for Colace 100 mg Oral Tablet - take 1 tablet by ORAL route every 12 hours; 14 tablet, Fleet Enema - take 1 Cartridge by RECTAL route 1-2 times daily for 1 day; 2 Cartridge. and Forms are Medication Reconciliation Form, Thank You Letter, Antibiotic Education, Prescription Opioid Use. Follow up: Private Physician; When: Tomorrow; Reason: If symptoms return. ma2
--- NOTE | 2019-09-04 04:08 | ER ---
Nurse's Notes [facility] Name: John Dave Age: 79 yrs Sex: Male : 1940 Arrival Date: 09/04/2019 Time: 01:52 Bed 5 Private MD: Diagnosis: Constipation, unspecified Presentation: 09/03 01:54 Acuity: LUPILLO 3 sg 02:08 Chief complaint: Patient states: "I haven't had a good bowel movement in about 2 days. jd3 I have a history if having problems with constipation and I have been forgetting to take my stool softeners recently.". Coronavirus screen: Proceed with normal triage. Ebola Screen: Patient negative for fever greater than or equal to 101.5 degrees Fahrenheit, and additional compatible Ebola Virus Disease symptoms. Initial Sepsis Screen: Does the patient meet any 2 criteria? No. Patient's initial sepsis screen is negative. Does the patient have a suspected source of infection? No. Patient's initial sepsis screen is negative. Risk Assessment: Do you want to hurt yourself or someone else? Patient reports no desire to harm self or others. Onset of symptoms was September 04, 2019. 02:08 Method Of Arrival: Ambulatory jd3 Historical: - Allergies: 01:54 Augmentin; sg 01:54 Erythromycin; sg 01:54 Levofloxacin; sg 01:54 PC23; sg - Home Meds: 02:27 metformin 1,000 mg Oral tab 1 tab 2 times per day [Active]; levothyroxine 125 mcg tab 2 jd3 tabs once daily [Active]; aspirin 81 mg Oral chew 1 tab once daily [Active]; primidone 50 mg Oral tab 1 tabs twice a day [Active]; atorvastatin 20 mg oral tab 1 tab once daily [Active]; B 12 500 mg daily [Active]; Vit D3 400 BID [Active]; Multiple Vitamins Oral tab daily [Active]; Fish Oil 1,000 mg oral cap daily [Active]; cetirizine 10 mg Oral tab 1 tab once daily [Active]; fluticasone inhalation 2 puffs 2 times per day [Active]; lisinopril 2.5 mg Oral tab 1 tab once daily [Active]; Insulin: Novolog Sub-Q [Active]; insulin levomier [Active]; bicalutamide 50 mg Oral tab 1 tab once daily [Active]; - PMHx: 01:54 Diabetes - IDDM; familial tremors; Hypothyroidism; plural effusion; Pneumonia; Prostate sg Cancer; thoracentisis; 02:27 chemo; jd3 - PSHx: 01:54 Cholecystectomy; prostate removal; sg 02:27 right shoulder; radiation 2007; jd3 - Immunization history:: Adult Immunizations up to date. - Social history:: Smoking status: Patient denies any tobacco usage or history of. Patient/guardian denies using alcohol, street drugs, The patient lives with family. - Family history:: not pertinent. Screenin:13 Abuse screen: Denies threats or abuse. Nutritional screening: No deficits noted. jd3 Tuberculosis screening: No symptoms or risk factors identified. Fall Risk Ambulatory Aid- None/Bed Rest/Nurse Assist (0 pts). Gait- Normal/Bed Rest/Wheelchair (0 pts) Mental Status- Oriented to own ability (0 pts). Total Castro Fall Scale indicates No Risk (0-24 pts). Assessment: 02:11 General: Appears in no apparent distress. uncomfortable, Behavior is calm, cooperative, jd3 appropriate for age. Pain: Complains of pain in abdomen Quality of pain is described as aching. Neuro: Level of Consciousness is awake, alert, obeys commands, Oriented to person, place, time, situation. Cardiovascular: Denies chest pain, Capillary refill < 3 seconds Patient's skin is warm and dry. Respiratory: Airway is patent Respiratory effort is even, unlabored, Respiratory pattern is regular, symmetrical, Denies cough, shortness of breath. GI: Abdomen is round distended, Abd is soft and non tender X 4 quads. Reports constipation, Patient currently denies diarrhea, nausea, vomiting. : No signs and/or symptoms were reported regarding the genitourinary system. EENT: No signs and/or symptoms were reported regarding the EENT system. Derm: Skin is intact, Skin is dry, Skin is normal, Skin temperature is warm. Musculoskeletal: Circulation, motion, and sensation intact. Range of motion: intact in all extremities. 02:54 Reassessment: Patient appears in no apparent distress at this time. Patient and/or jd3 family updated on plan of care and expected duration. Pain level reassessed. Patient is alert, oriented x 3, equal unlabored respirations, skin warm/dry/pink. Patient denies pain at this time. Patient states feeling better. 03:46 Reassessment: Patient appears in no apparent distress at this time. Patient and/or jd3 family updated on plan of care and expected duration. Pain level reassessed. Patient is alert, oriented x 3, equal unlabored respirations, skin warm/dry/pink. Patient denies pain at this time. Patient states feeling better. 04:27 Reassessment: Patient appears in no apparent distress at this time. Patient and/or jd3 family updated on plan of care and expected duration. Pain level reassessed. Patient is alert, oriented x 3, equal unlabored respirations, skin warm/dry/pink. Patient denies pain at this time. Patient states feeling better. Vital Signs: 02:10 BP 144 / 68; Pulse 87; Resp 19 S; Temp 98.4(O); Pulse Ox 97% on R/A; Weight 103.42 kg j (R); Height 6 ft. 0 in. (182.88 cm) (R); Pain 4/10; 03:46 BP 123 / 54; Pulse 80; Resp 20 S; Pulse Ox 98% on R/A; jd3 02:10 Body Mass Index 30.92 (103.42 kg, 182.88 cm) [facility] ED Course: 01:52 Patient arrived in ED. ds1 01:54 Triage completed. sg 01:54 Arm band placed on. sg 01:58 Pilar Luevano MD is Attending Physician. ma2 02:07 Percy Foster RN is Primary Nurse. jd3 02:13 Patient has correct armband on for positive identification. Bed in low position. Call [facility] light in reach. Side rails up X 1. Adult w/ patient. Pulse ox on. NIBP on. 02:30 Inserted saline lock: 20 gauge in right forearm, using aseptic technique. Blood ds4 collected. 02:33 Lipase Sent. ds4 02:33 Hepatic Function Sent. ds4 02:34 CBC with Diff Sent. ds4 02:34 Basic Metabolic Panel Sent. ds4 02:53 Assisted to bedside commode. Linen changed. pt with large BM. jd3 03:50 Notified ED physician of a critical lab result(s). ALT of 684 and AST of 381. jd3 04:27 No provider procedures requiring assistance completed. IV discontinued, intact, jd3 bleeding controlled, No redness/swelling at site. Pressure dressing applied. Administered Medications: 02:34 Drug: Fleet Enema 133 ml Route: [place]; jd3 03:09 Follow up: Response: No adverse reaction jd3 Outcome: 04:08 Discharge ordered by MD. alexandra 04:28 Discharged to home via wheelchair, with family. jd3 04:28 Condition: stable 04:28 Discharge instructions given to patient, family, Instructed on discharge instructions, follow up and referral plans. medication usage, Demonstrated understanding of instructions, follow-up care, medications, Prescriptions given X 2. 04:28 Patient left the ED. jd3 Signatures: Joe Samuels RN RN Brittany Mondragon ds1 Lang Iglesias4 Percy Foster RN RN jd3 Alzahri, Mohammad, MD MD ma2 Corrections: (The following items were deleted from the chart) 02:27 01:54 PSHx: shoulder; sg jd3
[2019-09-04 04:35] VITALS: TEMP 98.4
[2019-09-04 04:36] VITALS: BP 123/54; O2SAT 98
== END 2019-09-04 04:28 | disposition home or self-care (01) ==
LOC: ER 01:51
DX: K59.00 Constipation, unspecified (principal); E11.9 Type 2 diabetes mellitus without complications; E03.9 Hypothyroidism, unspecified; Z85.46 Personal history of malignant neoplasm of prostate; Z79.4 Long term (current) use of insulin; Z79.82 Long term (current) use of aspirin; Z88.1 Allergy status to other antibiotic agents; Z88.3 Allergy status to other anti-infective agents; Z88.8 Allergy status to other drugs, medicaments and biological substances
CPT/HCPCS: 36415; 80048; 80076; 83690; 85025; 99284